=== PATIENT | female | born 1990 | race African-American/Black ===

== ENCOUNTER 2019-10-30 20:13 | Emergency (ER) | payer OTHER ==
[~2019-10-30] VITALS: Ht 157.5 cm; Wt 103.4 kg
[2019-10-30] MEDS ORDERED: FAMOTIDINE 20 MG/2 ML VIAL IV STA (21:18)
[2019-10-30] MEDS ORDERED: ONDANSETRON HCL INJ 2MG/ML 2ML 2 MG/ML VIAL IV STA (21:18)
--- NOTE | 2019-10-30 21:18 | Emergency Department Note ---
History of Present Illnes History of Present Illness Chief Complaint: Abdominal Complaints History of Present Illness This is a 29 year old female, with no significant past medical history, who presents with a four-day history of intermittent nausea, diarrhea, abdominal pain. Patient states that the night before the onset of her symptoms, she ate some food that was left over from 2 days before, and it had been left out in the hot car, along with some Ranch Dip, and then refrigerated until patient ate it that evening. The following morning, patient developed frequent, loose, watery stools, along with nausea, and mid abdominal pain that has been sharp and stabbing. Patient's diarrhea has improved, but she did have 5 episodes today of loose, watery stool without blood, with small amount of mucus on the tissue. The loose stools occurred, after she ate solid food. The abdominal pain has become more constant, and she points to her mid abdomen as the site of pain. She states that she had abdominal pain all last night, which made it difficult to sleep. There is no radiation of the pain she denies any fever, chills, vomiting, dysuria, frequency, urgency, cough, or upper respiratory symptoms. She denies any known sick contacts, and no one else at home is symptomatic. She does work at the hospital in dietary. She's been taking Pepto-Bismol and ibuprofen 800 mg 3 times per day. Fluid intake today consisted of Sprite, Powerade and mineral water. Patient denies any recent antibiotic use. She denies any previous history of similar symptoms. Historian: Patient Arrival Mode: Car Telegraph Mechanic Required: No Onset (how long ago): day(s) (4) Location: mid-abdomen Quality: sharp, stabbing, cramping Radiation: Reports non-radiation Severity: moderate Duration (how long): day(s) (4) Timing of current episode: constant Progression: unchanged Chronicity: new Context: Denies recent illness, Denies recent surgery, Denies trauma/injury, Denies new medications Relieving factors: none Exacerbating factors: none Associated symptoms: Reports nausea/vomiting (without vomiting;); Denies chest pain, Denies cough, Denies fever/chills, Denies headaches, Denies loss of appetite, Denies malaise, Denies shortness of breath, Denies weakness Treatments prior to arrival: NSAID, other (Pepto Bismol) Risk factors: ate possible bad food; Past Medical/Family History Physician Review I have reviewed the patient's past medical and family history. Any updates have been documented here. Past Medical History Recent Fever: No Clinical Suspicion of Infectio: No New/Unexplained Change in Ment: No Past Medical History: None Other Surgery: wisdom tooth (right lower jaw) Social History Smoking Cessation: Never Smoker Counseling Performed: No Any Illegal Drug Use: No TB Exposure/Symptoms: No Physically hurt or threatened: No Family History Family history of heart diseas: No Other Last Tetanus: < 5 years; Any Pre-Existing Lines (PICC,: No Is patient up to date on immun: Yes Review of Systems Review of Systems Constitutional: Denies chills, Denies fever EENTM: Denies no symptoms Cardiovascular: Denies no symptoms, Denies chest pain Respiratory: Denies cough, Denies dyspnea, Denies dyspnea on exertion Gastrointestinal: Reports abdominal pain, Reports diarrhea, Reports nausea; Denies constipation, Denies vomiting Genitourinary: Denies dysuria, Denies frequency Musculoskeletal: Reports back pain (right sided low back pain, "for months."); Denies joint pain, Denies joint swelling, Denies neck pain Integumentary: Denies change in color, Denies rash Neurological: Denies headache, Denies paresthesia, Denies tingling Psychological: Reports no symptoms Hematological/Lymphatic: Reports no symptoms Review of other systems: All other systems negative Physical Exam Related Data Allergies: Coded Allergies: amoxapine (Verified Allergy, Intermediate, 10/30/19) Triage Vital Signs Vital Signs Date Time Temp Pulse Resp B/P (MAP) Pulse Ox O2 Delivery O2 Flow Rate FiO2 10/30/19 20:49 98.7 17 142/82 100 Room Air Vital signs reviewed: Yes Physical Exam CONSTITUTIONAL Constitutional: Present well-developed, Present well-nourished, Present obese HENT HENT: Present normocephalic, Present atraumatic, Present oropharynx clear/moist, Present nose normal HENT L/R: Present left ext ear normal, Present right ext ear normal EYES Eyes: Reports PERRL, Reports conjunctivae normal NECK Neck: Present ROM normal, Present supple; Absent cervical adenopathy PULMONARY Pulmonary: Present effort normal, Present breath sounds normal CARDIOVASCULAR Cardiovascular: Present regular rhythm, Present heart sounds normal, Present capillary refill normal, Present normal rate; Absent murmur GASTROINTESTINAL Abdominal: Present soft, Present bowel sounds normal, Present tender (mild, diffuse tenderness, without rebound or guarding;); Absent distension GENITOURINARY Genitourinary: Present exam deferred SKIN Skin: Present warm, Present dry; Absent rash MUSCULOSKELETAL Musculoskeletal: Present ROM normal; Absent edema, Absent tenderness NEUROLOGICAL Neurological: Present alert, Present oriented x 3 PSYCHOLOGICAL Psychological: Present mood/affect normal, Present judgement normal Results Laboratory Lab results reviewed: Yes Laboratory comments UA - neg except for ket 15 mg/dl, blo - small; UPT - negative; CBC - nl, except for Hg = 11.8; Metlyte -nl, except Cr = 0.4, k+ = 3.5; Liver - nl, including normal amylase; Imaging Imaging results reviewed: Yes Impressions [place] [address] Patient Name: KATI COOK MR #: [id number] : 1990 Age/Sex: 29/F Req #: [id number] Adm Physician: Ordered by: KECIA MARTINEZ MD Report #: [id number] Location: [facility] Room/Bed: Procedure: HOPD/CT ABD/PEL WITH CONTRAST-HOPD Exam Date: 10/30/19 Exam Time: 2211 REPORT STATUS: Signed EXAM: CT Abdomen and Pelvis WITH contrast INDICATION: ^abdominal pain ^20191030 ^2211 COMPARISON: None. TECHNIQUE: Abdomen and pelvis were scanned utilizing a multidetector helical scanner from the lung base to the pubic symphysis after administration of IV contrast. Coronal and sagittal reformations were obtained. Dose modulation, iterative reconstruction, and/or weight based adjustment of the mA/kV was utilized to reduce the radiation dose to as low as reasonably achievable. Routine protocol was performed. Scan was performed when during portal venous phase. IV CONTRAST: 100 mL of Isovue-370 ORAL CONTRAST: None COMPLICATIONS: None RADIATION DOSE: Total DLP: 807.05 mGy*cm Estimated effective dose: (DLP x 0.015 x size factor) mSv CTDIvol has been reviewed. It is below the limits set by the Radiation Protocol Committee (RPC). FINDINGS: LINES and TUBES: None. LOWER THORAX: Unremarkable HEPATOBILIARY: No focal hepatic lesions. No biliary ductal dilation. GALLBLADDER: No radio-opaque stones or sludge. No wall thickening. SPLEEN: No splenomegaly. PANCREAS: No focal masses or ductal dilatation. ADRENALS: No adrenal nodules KIDNEYS/URETERS: Kidneys enhance symmetrically. No hydronephrosis. No cystic or solid mass lesions. No stones. GI TRACT: No abnormal distention, wall thickening, or evidence of bowel obstruction. Appendix is normal. PELVIC ORGANS/BLADDER: Myomatous uterus. Bladder is unremarkable. LYMPH NODES: No lymphadenopathy. VESSELS: Unremarkable. PERITONEUM / RETROPERITONEUM: No free air or fluid. BONES: Unremarkable. SOFT TISSUES: Unremarkable. IMPRESSION: 1. No acute inflammatory process in the abdomen/pelvis. 2. Myomatous uterus. Signed by: Dr. Gerber Jean MD on 10/30/2019 11:07 PM Dictated By: GERBER JEAN MD 06 Transcribed By: RIMMA on 10/30/192306 COPY TO: KECIA MARTINEZ MD~ Diagnostics Tests Diagnostic test(s) reviewed: Yes Assessment & Plan Medical Decision Making MDM - Recommend that you follow a BLAND diet, avoiding fried, fatty, fast, and spicy foods. - Started out with broth and soups, and slowly advance to a more solid diet, as your symptoms allow. - Increase fluid intake, primarily water, Pedialyte, her G-tube Gatorade. Avoid all juices and sodas or other carbonated drinks. - For the diarrhea, he may take Imodium AD as per package instructions, as needed. - Increase Potassium Rich foods, as possible, until your diarrhea resolves. - Avoid Ibuprofen, due to abdominal pain/gastritis. - Follow-up with your primary care physician if symptoms persist, or return to the ED if they worsen. Assessment & Plan Final Impression: (1) Abdominal pain (2) Nausea (3) Diarrhea (4) Gastritis Depart Disposition: HOME, SELF-CARE Last Vital Signs Date Time Temp Pulse Resp B/P (MAP) Pulse Ox O2 Delivery O2 Flow Rate FiO2 10/30/19 20:49 98.7 17 142/82 100 Room Air Home Meds Active Scripts Famotidine (FAMOTIDINE) 20 Mg Tab, 40 MG PO DAILY for acid reflux, #30 TAB 0 Refills Prov:KECIA MARTINEZ MD 10/30/19 Dicyclomine Hcl (DICYCLOMINE HCL) 20 Mg Tablet, 1 TAB PO QID PRN for abdominal pain or cramping, #20 TAB 0 Refills Prov:KECIA MARTINEZ MD 10/30/19 Ondansetron (ONDANSETRON ODT) 8 Mg Tab.rapdis, 4 MG PO Q6H PRN for nausea, #20 TAB 0 Refills Prov:KECIA MARTINEZ MD 10/30/19 KECIA MARTINEZ MD Oct 30, 2019 21:17
[2019-10-30] MEDS ORDERED: ONDANSETRON HCL INJ 2MG/ML 2ML 2 MG/ML VIAL ONE (21:28)
[2019-10-30] MEDS ORDERED: SODIUM CHLORIDE 0.9% 1000ML 1,000 ML IV SCH (21:30)
[2019-10-30] MEDS ORDERED: DICYCLOMINE HCL 20 MG TAB PO ONE (21:30)
--- OUTSIDE RECORDS SUMMARY | 2019-10-30 21:30 | XMS REPORT | Clinical Summary ---
Author Author JESUS[facility] Address Unknown Phone Unavailable Care Team Providers Care Assignment Desk Assistant Name Role Phone Sharpless PCP Allergies Comments Active Allergy Reactions Severity Noted Date Amoxicillin Rash Low 08/21/2012 Medications No known medications Active Problems Not on file Social History Date Tobacco Use Types Packs/Day Years Used Never Smoker Smokeless Tobacco: Never Used Alcohol Use Drinks/Week oz/Week Comments No Sex Assigned at Date Recorded Not on file Industry Job Start Date Occupation Not on file Not on file Not on file Travel End Travel History Travel Start No recent travel history available. Last Filed Vital Signs Not on file Plan of Treatment Not on file Results Not on fileafter 10/29/2018 Insurance Payer Benefit Subscriber ID Type Phone Address Plan / Group [employer]ET[employer] - [employer] C[employer] AET[employer] HMO xxxxxxxxxx HMO/POS POS QPOS
--- OUTSIDE RECORDS SUMMARY | 2019-10-30 21:30 | XMS REPORT | Continuity of Care Document ---
Author Author [facility] t Organization [facility] Address [address] [place] [address] [address] [place] [address] Phone Unavailable Care Team Providers Care Enterprise Data Architect Name Role Phone Sharpless PCP Payers Payer Name Policy Type Policy Number Effective Date Expiration Date S ource Problems This patient has no known problems. Allergies, Adverse Reactions, Alerts Allergy Name Allergy Type Status Severity Reaction(s) Onset Date Inacti ve Date Treating Clinician Comments Source amoxicillin DA Active U 2018-05-12 00:00:00 [facility] amoxicillin DA Active U 2012-09-16 00:00:00 [facility] Amoxicillin Drug Allergy Active Rash 2012-08-21 00:00:00 [facility] Social History Social Habit Start Date Stop Date Quantity Comments Source Sex Assigned At [facility] Smoking Status Start Date Stop Date Source Never smoker [facility] Medications This patient has no known medications. Procedures This patient has no known procedures. Results Test Description Test Time Test Comments Results Result Comments Source - XR CHEST 2 V 2018-05-12 01:03:00 FAX: Michele Paz MD [phone] [place]: St: REG -- [facility] 1990 Age/S: 28/F [address] [place] [address] Unit #: [id number] Loc: [address] [address] Phys: Michele Paz MD Acct: [id number] Dis Date: Status: REG ER PHONE #: [phone] Exam Date: 05/12/2018 0046 FAX #: [phone] Reason: cough EXAMS: CPT CODE: [id number] XR CHEST 2 V 24425 Chest, 2 views dated 05/12/2018. HISTORY: Cough. Body aches. Fever. Comparison is made to a prior study dated 07/30/2011. The heart is normal in size. The cardiomediastinal shadow appears within normal limits. The lungs appear clear. The pulmonary vasculature is normal in caliber. No acute pleural space abnormalities are detected. IMPRESSION: 1. No radiographic evidence of acute cardiopulmonary disease. SL: 131 at 0103 Reported and signed by: Bill Starr M.D. CC: Michele Paz MD Technologist: RT Agustina(Janeth) Trnscrd Date/Time/By: 05/12/2018 (010) : By: Smith Orig Print D/T: S: 05/12/2018 (010) PAGE 1 Signed Report
[2019-10-30] MEDS ORDERED: DICYCLOMINE HCL 10 MG CAP ONE (21:58)
[2019-10-30] MEDS ORDERED: SODIUM CHLORIDE 0.9% 50ML 50 ML ONE (22:06)
[2019-10-30] MEDS ORDERED: IOPAMIDOL 370 MG/ML 200 ML INFUS..BTL INJ ONE (22:07)
--- NOTE | 2019-10-30 23:11 | Diagnostic Imaging Report ---
EXAM: CT Abdomen and Pelvis WITH contrast INDICATION: ^abdominal pain ^20191030 ^221 COMPARISON: None. TECHNIQUE: Abdomen and pelvis were scanned utilizing a multidetector helical scanner from the lung base to the pubic symphysis after administration of IV contrast. Coronal and sagittal reformations were obtained. Dose modulation, iterative reconstruction, and/or weight based adjustment of the mA/kV was utilized to reduce the radiation dose to as low as reasonably achievable. Routine protocol was performed. Scan was performed when during portal venous phase. IV CONTRAST: 100 mL of Isovue-370 ORAL CONTRAST: None COMPLICATIONS: None RADIATION DOSE: Total DLP: 807.05 mGy*cm Estimated effective dose: (DLP x 0.015 x size factor) mSv CTDIvol has been reviewed. It is below the limits set by the Radiation Protocol Committee (RPC). FINDINGS: LINES and TUBES: None. LOWER THORAX: Unremarkable HEPATOBILIARY: No focal hepatic lesions. No biliary ductal dilation. GALLBLADDER: No radio-opaque stones or sludge. No wall thickening. SPLEEN: No splenomegaly. PANCREAS: No focal masses or ductal dilatation. ADRENALS: No adrenal nodules KIDNEYS/URETERS: Kidneys enhance symmetrically. No hydronephrosis. No cystic or solid mass lesions. No stones. GI TRACT: No abnormal distention, wall thickening, or evidence of bowel obstruction. Appendix is normal. PELVIC ORGANS/BLADDER: Myomatous uterus. Bladder is unremarkable. LYMPH NODES: No lymphadenopathy. VESSELS: Unremarkable. PERITONEUM / RETROPERITONEUM: No free air or fluid. BONES: Unremarkable. SOFT TISSUES: Unremarkable. IMPRESSION: 1. No acute inflammatory process in the abdomen/pelvis. 2. Myomatous uterus. Signed by: Dr. Gerber Jean MD on 10/30/2019 11:07 PM
[2019-10-30] MEDS ORDERED: ONDANSETRON ODT8 MG PO (23:20)
[2019-10-30] MEDS ORDERED: DICYCLOMINE HCL20 MG PO (23:21)
[2019-10-30] MEDS ORDERED: FAMOTIDINE20 MG PO (23:22)
[2019-10-30 23:25] VITALS: BP 122/67
== END 2019-10-30 23:51 | disposition home or self-care (01) ==
LOC: FSED 20:13
DX: R10.84 Generalized abdominal pain (principal); R11.2 Nausea with vomiting, unspecified; R19.7 Diarrhea, unspecified; K29.70 Gastritis, unspecified, without bleeding
CPT/HCPCS: 74177; 99284; J2405; J7030; Q9967

== ENCOUNTER 2019-11-28 12:41 | Emergency (ER) | payer OTHER ==
[~2019-11-28] VITALS: Ht 157.5 cm; Wt 113.4 kg
[~2019-11-28 12:41] MED LIST: DICYCLOMINE HCL20 MG PO; FAMOTIDINE20 MG PO; ONDANSETRON ODT8 MG PO
--- OUTSIDE RECORDS SUMMARY | 2019-11-28 13:31 | XMS REPORT | Continuity of Care Document ---
Author Author [facility] t Organization [facility] Address [address] [place] [address] Phone Unavailable Care Team Providers Care Manager Trainee Name Role Phone NONSTAFF PCP Unavailable EVAN BEAR Attphys Unavailable Suyapa Maki MD Attphys SUYAPA MAKI Attphys Unavailable DUCRoxi GAGNON KECIA Attphys Unavailable EVAN BEAR Admphys Unavailable Payers Payer Name Policy Type Policy Number Effective Date Expiration Date Darío colindres [facility] Ppo [id number] 2019 00:00:00 [facility] - [facility] [employer] POSxxxxxxxxx xxxxxxxxx [facility] Problems Condition Name Condition Details Condition Category Status Onset Date Resolution Date Last Treatment Date Treating Clinician Comments Source Diarrhea Problem Active [facility] Nausea Problem Active [facility] Abdominal pain Problem Active [facility] Gastritis Problem Active [facility] Back pain Problem Active [facility] Urinary tract infection Problem Active [facility] Fever Problem Active [facility] Soft tissue lesion of knee region Problem Active [facility] Allergies, Adverse Reactions, Alerts Allergy Name Allergy Type Status Severity Reaction(s) Onset Date Inacti ve Date Treating Clinician Comments Source Amoxapine Allergy to substance Active Moderate 2019-10-30 00:00:00 [facility] amoxicillin DA Active U 2018-05-12 00:00:00 [facility] amoxicillin DA Active U 2012-09-16 00:00:00 [facility] Amoxicillin Drug Allergy Active Rash 2012-08-21 00:00:00 [facility] Social History Social Habit Start Date Stop Date Quantity Comments Source Sex Assigned At [facility] Smoking Status Start Date Stop Date Source Never smoker [facility] Medications Ordered Medication Name Filled Medication Name Start Date Stop Da te Current Medication? Ordering Clinician Indication Dosage Frequency Signature (SIG) Comments Components Source baclofen (LIORESAL) 10 MG tablet 2019-11-05 00:00:00 2019-10 23:59:00 No 10mg [id number] Take 1 tablet (10 mg total) by mouth 3 (three) times daily for 10 days. [facility] ketorolac (TORADOL) 10 mg tablet 2019-11-05 00:00:00 2019-10 23:59:00 No 10mg Take 1 tablet (10 mg total) by mouth every 6 (six) hours as needed for Pain for up to 5 days. [facility] Famotidine Famotidine 2019-10-30 23:22:00 Yes 40 Daily for Acid Reflux [facility] Dicyclomine Hcl Dicyclomine Hcl 2019-10-30 23:21:00 Yes 1 Four Times Daily as needed for Abdominal Pain Or Cramping [facility] Ondansetron (Ondansetron Odt) 8 Mg TAB.RAPDIS Ondanset javon (Ondansetron Odt) 8 Mg TAB.RAPDIS 2019-10-30 23:20:00 Yes 4 E very 6 Hours as needed for Nausea [facility] Vital Signs Vital Name Observation Time Observation Value Comments Source Body Temperature 2019-11-21 08:41:00 98.3 [degF] [facility] BMI (Body Mass Index) 2019-11-18 01:07:00 46.3 kg/m2 [facility] Weight 2019-11-17 22:40:00 253 [lb_av] [facility] Systolic blood pressure 2019-11-05 12:45:00 133 mm[Hg] [facility] Diastolic blood pressure 2019-11-05 12:45:00 85 mm[Hg] [facility] Heart rate 2019-11-05 12:45:00 81 /min [facility] Body temperature 2019-11-05 12:45:00 36.78 Angelina [facility] Respiratory rate 2019-11-05 12:45:00 16 /min [facility] Oxygen saturation in Arterial blood by Pulse oximetry 11-04 12:45:00 99 /min [facility] Body height 2019-11-05 07:20:00 157.5 cm [facility] Body weight Measured 2019-11-05 07:20:00 104.327 kg [facility] BMI 2019-11-05 07:20:00 42.07 kg/m2 [facility] Weight 2019-10-30 20:49:00 228 [lb_av] [facility] BMI (Body Mass Index) 2019-10-30 20:49:00 41.7 kg/m2 [facility] Procedures Procedure Date / Time Performed Performing Clinician [facility] e MRI joint extremity lower w contrast 2019-11-19 00:00:00 [facility] MRI jnt of lwr extre w/o dye 2019-11-18 00:00:00 [facility] C-REACTIVE PROTEIN 2019-11-05 11:47:00 Harmeet Maki [facility] Darío [facility] COMPREHENSIVE METABOLIC PANEL 2019-11-05 09:46:00 Harmeet Maki [facility] CBC W/PLT COUNT & AUTO DIFFERENTIAL 2019-11-05 09:46:00 GlynnKayode [facility] XR SPINE LUMBAR COMPLETE MIN 4 VIEWS 2019-11-05 09:32:00 GlynnJackie [facility] XR SPINE THORACIC 2 VIEWS 2019-11-05 09:31:00 GlynnHarmeet [facility] XR HIP 2 VIEWS LEFT 2019-11-05 09:20:00 Glynn Harmeet [facility] XR CHEST 2 VIEWS 2019-11-05 09:10:00 Glynn Harmeet [facility] SCREEN, URINE 2019-11-05 08:00:00 Glynn Harmeet [facility] URINALYSIS W/ REFLEX URINE CULTURE 2019-11-05 08:00:00 Doug Maki [facility] Plan of Care Planned Activity Planned Date Details Comments Source Future Scheduled Test 2019-10-26 00:00:00 INFLUENZA VACCINE (#1) [code = INFLUENZA VACCINE (#1)] [facility] Future Scheduled Test 2009 00:00:00 Screening for prema gnant neoplasm of cervix (procedure) [code = 747991127] [facility] Future Scheduled Test 2008 00:00:00 Lipid panel (proce dure) [code = 59614068] [facility] Instructions Constipation - Adult [facility] Instructions Heartburn [facility] Encounters Start Date/Time End Date/Time Encounter Type Admission Type [facility] Facility Care Department Encounter ID Source 2019-11-17 20:01:00 2019-11-17 20:01:00 Admitted Inpatient 1 EVAN CHIANG [facility] [id number] [facility] 2019-10-30 20:13:00 2019-10-30 23:51:00 Departed Emergency Room 1 NATALIE MARTINEZA [facility] [id number] [facility] Results Test Description Test Time Test Comments Results Result Comments Source Blood leukocytes automated count (number/volume) 2019-11-20 10:50:00 Test Item White Blood Count (test code = 6690-2) 8.11 4.8-10.8 [facility] count (number/volume)2019-11-20 10:50:00* Test Item Value Reference Range Interpretation Comments Red Blood Count (test code = 789-8) 3.77 3.6-5.1 [facility] hemoglobin measurement (moles/volume)2019-11-20 10:50:00* Test Item Value Reference Range Interpretation Comments Hemoglobin (test code = 25608-2) 10.6 12.0-16.0 [facility] blood hematocrit (volume fraction)2019-11-20 10:50:00* Test Item Value Reference Range Interpretation Comments Hematocrit (test code = 4544-3) 32.3 34.2-44.1 [facility] erythrocyte mean corpuscular ndscqa6209-62-89 10:50:00* Test Item Value Reference Range Interpretation Comments Mean Corpuscular Volume (test code = 787-2) 85.7 81-99 [facility] erythrocyte mean corpuscular hemoglobin (mass per erythrocyte)2019-11-20 10:50:00* Test Item Value Reference Range Interpretation Comments Mean Corpuscular Hemoglobin (test code = 785-6) 28.1 28-32 [facility] erythrocyte mean corpuscular hemoglobin concentration measurement (mass/volume)2019-11-20 10:50:00* Test Item Value Reference Range Interpretation Comments Mean Corpuscular Hemoglobin Concent (test code = 786-4) 32.8 31-35 [facility] CampusRDW GjoJv-Vzn8694-62-26 10:50:00* Test Item Value Reference Range Interpretation Comments Red Cell Distribution Width (test code = 38208-7) 12.4 11.7 -14.4 [facility] Campus[facility] blood platelet count (count/volume)2019-11-20 10:50:00* Test Item Value Reference Range Interpretation Comments Platelet Count (test code = 777-3) 441 140-360 [facility] Campus[facility] blood segmented neutrophil count as percentage of total wwitezgukt2532-03-91 10:50:00* Test Item Value Reference Range Interpretation Comments Neutrophils (%) (Auto) (test code = 56956-9) 75.3 38.7-80.0 [facility] Campus[facility] blood lymphocyte count as percentage ot total crqqrueqkj1927-87-52 10:50:00* Test Item Value Reference Range Interpretation Comments Lymphocytes (%) (Auto) (test code = 736-9) 15.8 18.0-39.1 [facility] CampusAutom[facility] blood monocyte count as percentage of total bsxgzrdxmc1645-52-24 10:50:00* Test Item Value Reference Range Interpretation Comments Monocytes (%) (Auto) (test code = 5905-5) 8.4 4.4-11.3 [facility] CampusAutom[facility] blood eosinophil count as percentage of total brjvoryumd6464-45-18 10:50:00* Test Item Value Reference Range Interpretation Comments Eosinophils (%) (Auto) (test code = 713-8) 0.0 0.0-6.0 [facility] CampusAutomated blood basophil count as percentage of total fdalsuechd3673-31-32 10:50:00* Test Item Value Reference Range Interpretation Comments Basophils (%) (Auto) (test code = 706-2) 0.1 0.0-1.0 [facility] CampusFluoroscopic procedure less than one hour ibefzxcc9454-06-93 10:50:00* Test Item Value Reference Range Interpretation Comments IM GRANULOCYTES % (test code = IM GRANULOCYTES %) 0.4 0.0- 1.0 [facility] Campus[facility] blood neutrophil count 2019-11-20 10:50:00* Test Item Value Reference Range Interpretation Comments Neutrophils # (Auto) (test code = 751-8) 6.1 2.1-6.9 [facility] lymphocytes count (number/volume) 2019-11-20 10:50:00* Test Item Value Reference Range Interpretation Comments Lymphocytes # (Auto) (test code = 90046-2) 1.3 1.0-3.2 [facility] monocytes automated count (number/volume)2019-11-20 10:50:00* Test Item Value Reference Range Interpretation Comments Monocytes # (Auto) (test code = 742-7) 0.7 0.2-0.8 [facility] CampusAutomated blood eosinophil count 2019-11-20 10:50:00* Test Item Value Reference Range Interpretation Comments Eosinophils # (Auto) (test code = 711-2) 0.0 0.0-0.4 [facility] CampusAutomated blood basophil count (count/volume)2019-11-20 10:50:00* Test Item Value Reference Range Interpretation Comments Basophils # (Auto) (test code = 704-7) 0.0 0.0-0.1 [facility] CampusFluoroscopic procedure less than one hour ebivbmma7563-40-86 10:50:00* Test Item Value Reference Range Interpretation Comments Absolute Immature Granulocyte (auto (ana maria t code = Absolute Immature Granulocyte (auto) 0.03 0-0.1 [facility] CampusErythrocyte sedimentation rate by Westergren seakzs6376-57-22 10:50:00* Test Item Value Reference Range Interpretation Comments Erythrocyte Sedimentation Rate (test code = 4537-7) 97 0- 20 [facility] or plasma sodium measurement (moles/volume)2019-11-20 10:50:00* Test Item Value Reference Range Interpretation Comments Sodium Level (test code = 2951-2) 138 136-145 [facility] or plasma potassium measurement (moles/volume)2019-11-20 10:50:00* Test Item Value Reference Range Interpretation Comments Potassium Level (test code = 2823-3) 4.0 3.5-5.1 [facility] or plasma chloride measurement (moles/volume)2019-11-20 10:50:00* Test Item Value Reference Range Interpretation Comments Chloride Level (test code = 2075-0) 103 98-107 [facility] or plasma carbon dioxide, total measurement (moles/volume)2019-11-20 10:50:00* Test Item Value Reference Range Interpretation Comments Carbon Dioxide Level (test code = 2027-) 25 22-29 [facility] or plasma anion hqt8620-67-00 10:50:00* Test Item Value Reference Range Interpretation Comments Anion Gap (test code = 14474-4) 14.0 8-16 [facility] or plasma urea nitrogen measurement (mass/volume)2019-11-20 10:50:00* Test Item Value Reference Range Interpretation Comments Blood Urea Nitrogen (test code = 3094-0) 10 7- [facility] or plasma creatinine measurement (mass/volume)2019-11-20 10:50:00* Test Item Value Reference Range Interpretation Comments Creatinine (test code = 2160-0) 0.61 0.57-1.11 [facility] or plasma urea nitrogen/creatinine mass optya7990-21-44 10:50:00* Test Item Value Reference Range Interpretation Comments BUN/Creatinine Ratio (test code = 3097-3) 16 - [facility] CampusEstimated glomerular filtration rate (GFR) oaqxjobaxbcpx5150-47-33 10:50:00* Test Item Value Reference Range Interpretation Comments Estimat Glomerular Filtration Rate (test code = 411720886) > 60 >60 Ranges were taken from the National Kidney Disease Education Program and the [facility] [employer] literature.Reference ranges:60 or greater: Aqhdas66-16 ( for 3 consecutive months): Chronic kidney disease 15 or less: Kidney failureThe Hospitals of Providence East CampusGlucose hnuvqxcxrqn1625-07-61 10:50:00* Test Item Value Reference Range Interpretation Comments Glucose Level (test code = EEM1557) 100 74-118 [facility] or plasma calcium measurement (mass/volume)2019-11-20 10:50:00* Test Item Value Reference Range Interpretation Comments Calcium Level (test code = 83091-2) 9.4 8.4-10.2 [facility]rum or plasma uric acid measurement (mass/volume)2019-11-20 10:50:00* Test Item Value Reference Range Interpretation Comments Uric Acid (test code = 3084-1) 3.7 2.6-8.0 [facility] CampusMRI RIGHT KNEE [id number] 09:59:00 [place] [address] [place] [address] Patient Name: KATI COOK MR #: [id number] : 1990 Age/Sex: 29/F Req #: [id number] Adm Physician: EVAN BEAR MD Ordered by: OLIVIA WRIGHT Report #: [id number] Location: MED/SURG Room/Bed: [facility] Procedure: [id number] MRI/MRI RIGHT KNEE W Exam Date: Exam Time: REPORT STATUS: Signed TECHNIQUE: Magnetic re sonance imaging of the RIGHT KNEE was performed WITH injected contrast. CONTRAST: 20 mL MultiHance HISTORY: Knee pain, abnormal knee MRI COMPARI SON: Right knee MRI without contrast 11/18/2019, right lower extremity Doppler ultrasound 11/17/2019 FINDINGS: Limited postcontrast knee MRI with only single postcontrast axial sequence for further evaluation of abnormality noted on noncontrast MRI. Lentiform shaped mass with peripheral T2 hyperintensity and internal isointensity within the posterior soft tissues extending between the fascial planes of the popliteus and proximal gastrocnemius musculature. Lesion demonstrates avid diffuse enhancement. Finding correlates with hypoecho ic mass without visualized internal hyperemia on prior Doppler ultrasound. M ass abuts the popliteal vasculature. Popliteal vein appears grossly patent on postcontrast sequences. Redemonstrated large joint effusion with diffuse sy novitis. Please see report from noncontrast knee MRI for further evaluation of the right knee. IMPRESSION: 1. Lentiform shaped mass extending infer iorly from the popliteal fossa with diffuse enhancement on postcontrast sequen ce. Mass is indeterminate however differential diagnosis includes soft tissue neoplasm, peripheral nerve sheath tumor, fasciitis/fibromatosis, or focal/nod ular synovitis. Recommend biopsy for definitive evaluation. 2. Redemonstrat ed large joint effusion with diffuse synovitis. Signed by: Dr. Citlali mcintosh M.D. on 11/19/2019 11:21 AM Dictated By: CITLALI Maciel ically Signed By: CITLALI GALDAMEZ MD on 11/19/19 112 Transcribed By: RIMMA on 11/19/191120 COPY TO: OLIVIA WRIGHT Specimen source identification of body bgmwj4839-64-42 08:11:00* Test Item Value Reference Range Interpretation Comments Body Fluid Type (test code = 71176-2) SYNOVIAL [facility] CampusEvaluation of color of body fluid 2019-11-19 08:11:00* Test Item Value Reference Range Interpretation Comments Body Fluid Color (test code = 6824-7) YELLOW [facility] CampusDetermination of appearance of body fluid 2019-11-19 08:11:00* Test Item Value Reference Range Interpretation Comments Body Fluid Appearance (test code = 9335-1) CLOUDY [facility] body fluid leukocytes count (number/volume)2019-11-19 08:11:00* Test Item Value Reference Range Interpretation Comments Body Fluid WBC (test code = 6743-9) 15282 [facility] body fluid erythrocytes count (number/volume)2019-11-19 08:11:00* Test Item Value Reference Range Interpretation Comments Body Fluid RBC (test code = 6741-3) 165 [facility] body fluid neutrophils/100 obagsztljn9134-87-92 08:11:00* Test Item Value Reference Range Interpretation Comments Body Fluid Neutrophils (test code = 90349-2) 67 [facility] CampusBody fluid lymphocyte wgczc8699-53-89 08:11:00* Test Item Value Reference Range Interpretation Comments Body Fluid Lymphocytes (test code = 25647035) 20 [facility] CampusBody fluid monocyte ihoca7413-70-39 08:11:00* Test Item Value Reference Range Interpretation Comments Body Fluid Monocytes (test code = 75903-2) 13 [facility] CampusTotal cell gkwon9761-48-70 08:11:00* Test Item Value Reference Range Interpretation Comments Body Fluid Total Cells Counted (test code = 35673-6) 100 [facility] [id number] 15:35:00 [facility] [address] [place] [address] Patient Name: KATI COOK MR #: [id number] : 1990 Age/Sex: 29/F Req #: [id number] Adm Physician: EVAN BEAR MD Ordered by: EVAN BEAR MD Report #: [id number] Location: MED/SURG Room/Bed: [facility] Procedure: [id number] MRI/MRI RIG HT KNEE WO Exam Date: Exam Time: REPORT STATUS: Signed TECHNIQUE: Magnetic reson ance imaging of the RIGHT KNEE was performed WITHOUT injected contrast. HISTORY: Right knee pain and swelling COMPARISON: Right lower extremity veno us Doppler ultrasound 11/17/2019 FINDINGS: Evaluation is partially limite d by imaging technique due to body habitus. LIGAMENTS AND TENDONS: A CL: Intact PCL: Intact Collateral ligaments: Intact Ilio tibial band: Unremarkable Popliteal tendon: Intact Extensor mech anism: Intact JOINT: Menisci: Medial: Intact Lateral: Intact Articular Cartilage: Medial Compartme nt: Low-grade cartilage thinning along the weightbearing medial femoral condy le. No focal defect. Lateral Compartment: Low-grade cartilage thinn ing along the weightbearing lateral femoral condyle. No focal defect. Patellofemoral Compartment: Mild lateral patellar subluxation with superf icial fraying of the articular cartilage along the patella. No focal defect. Joint Fluid: Large joint effusion with synovitis. Tiny Stoddard's cyst. BONE: No focal or infiltrative bone marrow replacing abnormality. No acute fracture. SOFT TISSUES: Mild increased signal and fluid tracking al tj the distal aspect of the vastus lateralis muscle along the lateral aspect of the knee. Lentiform shaped lentiform shaped lesion with peripheral T2 hyper intensity and internal isointensity measuring up to 7 x 2.3 x 2.4 cm (SI x AP x Trans) within the posterior soft tissues extending between the fascial plane s of the popliteus and proximal gastrocnemius musculature. Superior aspect of lesion abuts the posterior joint recess without definite communication of join t fluid. Lesion results in mild regional mass effect on the adjacent popliteal vasculature. IMPRESSION: 1. Lentiform shaped lesion measuring up to 7 cm extending inferiorly from the popliteal fossa with peripheral T2 hyper intensity and internal isointensity. Superior aspect of the lesion abuts the p osterior joint recess without definite communication of joint fluid. Different ial diagnosis includes extravasated joint fluid with internal debris, resolvin g hematoma, thrombosed vascular lesion, or less likely soft tissue neoplasm. R ecommend postcontrast knee MRI sequences for further evaluation. 2. Large j oint effusion with synovitis. 3. Nonspecific increased signal and fluid tracki ng along the distal aspect of the vastus lateralis muscle, may represent extra vasated joint fluid, muscle strain, or less likely focal myositis. 4. Minima l tricompartmental cartilage degeneration. Signed by: Dr. Citlali Galdamez M.D. on 11/19/2019 8:26 AM Dictated By: CITLALI GALDAMEZ MD 5 Transcribed By: RIMMA on 11/18 COPY TO: EVAN BEAR MD MRI KNEE LEFT [id number] 15:07:00 [place] [address] Patient Name: KATI COOK MR #: [id number] : 1990 Age/Sex: 29/F Req #: [id number] Adm Physician: EVAN BEAR MD Ordered by: EVAN BEAR MD Report #: [id number] Location: MED/SURG Room/Bed: [facility] Procedure: [id number] MRI/MRI KNE E LEFT WO Exam Date: Exam Time: REPORT STATUS: Signed TECHNIQUE: Magnetic resona nce imaging of the LEFT KNEE was performed WITHOUT injected contrast. HI STORY: Left knee pain and swelling COMPARISON: None available. FINDINGS : Evaluation is partially limited by imaging technique secondary to patient b xi habitus. LIGAMENTS AND TENDONS: ACL: Intact PCL: Inta ct Collateral ligaments: Intact Iliotibial band: Unremarkable Popliteal tendon: Intact Extensor mechanism: Intact JOINT: Menisci: Medial: Small tear along the free margin at the body of the medial meniscus. Lateral: Oblique tear of the anterior ho rn of the lateral meniscus which extends to the superior surface. Ar ticular Cartilage: Medial Compartment: Low-grade cartilage thinning along the weightbearing medial femoral condyle. No focal defect. Lateral Compartment: Low-grade cartilage thinning along the weightbearing lat eral femoral condyle. No focal defect. Patellofemoral Compartment: Mild lateral patellar subluxation with low-grade cartilage fissuring along the medial patellar facet. Joint Fluid: Large joint effusion with synovit is. Moderate-sized Stoddard's cyst measuring up to 4 cm in craniocaudal dimension . Associated fluid tracking superiorly and inferiorly along the semimembranosu s and gastrocnemius musculature, suggestive of ruptured Stoddard's cyst. BON E: No focal or infiltrative bone marrow replacing abnormality. No acute fracture. SOFT TISSUES: Nonspecific increased signal and fluid tracking a long the distal portion of the vastus lateralis muscle and extending inferiorl y along the lateral aspect of the knee. IMPRESSION: 1. Large joint effusion with synovitis. Associated moderate size Stoddard's cyst with suspected rupture and fluid tracking superiorly and inferiorly along the posterior musc ulature of the knee. 2. Additional nonspecific increased signal and fluid tra cking along the distal portion of the vastus lateralis muscle, may represent a dditional extravasation of joint fluid, muscle strain, or less likely focal my ositis. 3. Small tear along the free margin at the body of the medial meniscus . 4. Oblique tear along the anterior horn of the lateral meniscus. 5. Low-gr rio cartilage thinning along the medial and lateral femoral condyles. Letty d by: Dr. Citlali Galdamez M.D. on 11/18/2019 4:58 PM Dictated By: ENRRIQUE GALDAMEZ MD 57 Trans cribed By: RIMMA on 11/18/191657 COPY TO: EVAN BEAR MD Serum or plasma total bilirubin measurement (mass/volume)2019-11-18 05:00:00* Test Item Value Reference Range Interpretation Comments Total Bilirubin (test code = 1975-2) 0.2 0.2-1.2 [facility]Fluor[facility] procedure less than one hour [id number] 05:00:00* Test Item Value Reference Range Interpretation Comments Aspartate Amino Transf (AST/SGOT) (test code = Aspartate Amino Transf (AST/SGOT)) 9 5-34 [facility] or plasma alanine aminotransferase measurement (enzymatic activity/volume)2019-11-18 05:00:00* Test Item Value Reference Range Interpretation Comments Alanine Aminotransferase (ALT/SGPT) (test code = 1742-6) 6 0-55 [facility] or plasma protein measurement (mass/volume)2019-11-18 05:00:00* Test Item Value Reference Range Interpretation Comments Total Protein (test code = 2885-2) 6.8 6.5-8.1 [facility] or plasma albumin measurement (mass/volume)2019-11-18 05:00:00* Test Item Value Reference Range Interpretation Comments Albumin (test code = 1751-7) 3.5 3.5-5.0 [facility] CampusPlasma globulin measurement (mass/volume) 2019-11-18 05:00:00* Test Item Value Reference Range Interpretation Comments Globulin (test code = 74665-4) 3.3 2.3-3.5 [facility] or plasma albumin/globulin mass [id number] 05:00:00* Test Item Value Reference Range Interpretation Comments Albumin/Globulin Ratio (test code = 1759-0) 1.1 0.8-2.0 [facility] or plasma alkaline phosphatase measurement (enzymatic activity/volume)2019-11-18 05:00:00* Test Item Value Reference Range Interpretation Comments Alkaline Phosphatase (test code = 6768-6) 73 40-150 [facility] CampusFluoroscopic procedure less than one hour [id number] 20:54:00* Test Item Value Reference Range Interpretation Comments Coronavirus (PCR) (test code = Coronavirus (PCR)) NOT DETECTED NOTD ETECTED SARS-CoV-2 PCRHologic Aptima SARS-CoV-2 assay is a nucleic amplification test in tended for the qualitative detection of RNA from SARS-CoV-2 from nasopharyngeal ([employer]) specimens. It is used under Emergency Use Authorization (EUA) by FDA.A posi tive result is indicative of the presence of SARS-CoV-2 RNA. Clinical correlatio n with patient history and other diagnostic information is necessary to determin e patient infection status.A negative (Not Detected) result does not preclude SA RS-CoV-2 infection. Clinical Correlation with patient history and other diagnost ic information should be used in patient management decisions.Invalid: Unable to generate a valid result on this specimen. Please submit a new specimen for repr at testing oc clinically indicated.Tesing performed by:[facility] Laboratory Services[address] [place] [id number], Harmeet keyes MD, PhDThe [facility]als [facility] CampusUS EXREMEITY VEINS UNI-HOPD 2019-11-17 18:28:00 [place] [address] Patient Name: KATI COOK MR #: [id number] : 1990 Age/Sex: 29/F Req #: [id number] Adm Physician: Ordered by: MAGDA ALEXANDER MD Report #: [id number] Location: [facility] Room/Bed: Procedure: HOPD/U S EXREMEITY VEINS UNI-HOPD Exam Date: 11/17/19 Exam Time: 1740 REPORT STATUS: Signed EXAM: Unilateral Lower Extremity Venous Duplex Ultrasound INDICATION: Lower e xtruded pain. COMPARISON: None TECHNIQUE: Maradiaga scale, color Doppler and sp ectral waveform analysis of the unilateral lower extremity deep venous system was performed. FINDINGS: Common Femoral: Fully compressible wit h normal spontaneous waveforms. Proximal Greater Saphenous: Fully c ompressible. Femoral: Fully compressible with normal spontaneous w aveforms. Normal response to augmentation. Proximal Deep Femoral: Normal spontaneous waveforms. Popliteal: Fully compressible w ith normal spontaneous waveforms. Others: There is an anechoic mass in th e popliteal region which measures approximately 2.4 x 2.2 x 4.1 cm, causing ma ss effect on the popliteal artery and veins. IMPRESSION: 1. No ev idence of deep venous thrombosis above the unilateral calf. 2. Anechoic mass in the popliteal fossa which measures up to 4.1 cm, causing mass effect on the popliteal artery and veins. Recommend an MRI of the knee on nonemergent basis for complete assessment of this finding. Signed by: Edilson Purcell MD on 6:31 PM Dictated By: EDILSON PURCELL MD 30 Transcribed By: RIMMA on 11/17/191830 COPY TO: MAGDA ALEXANDER MD CT ABD/PEL WO [id number]-[id number] 16:55:00 [place] [address] Patient Name: KATI COOK MR #: [id number] : 1990 Age/Sex: 29/F Req #: [id number] Adm Physician: Ordered by: MAGDA ALEXANDER MD Report #: [id number] Location: [facility] Room/Bed: Procedure: HOPD/C T ABD/PEL WO CONTRAST-HOPD Exam Date: 11/17/19 Exam Time: 1646 REPORT STATUS: Signed EXAM: CT Abdomen and Pelvis WITHOUT intravenous contrast INDICATION: Back pain, fever COMPARISON: CT abdomen and pelvis of 10/30/2019 TECHNIQUE: Abdomen and pelvis were scanned utilizing a multidetector helical scanner from the lung base to the pubic symphysis without administration of IV contrast. Coronal and sagittal reformations were obtained. IV CONTRAST: None ORAL CONTRAST: Water COMPLICATIONS: None RADIATION DOSE: Total DLP: 955 mGy*cm Dose modulation, iterative reconstruction, and/or w eight based adjustment of the mA/kV was utilized to reduce the radiation dose to as low as reasonably achievable. FINDINGS: LOWER THORAX: Normal. HEPATOBILIARY: No focal hepatic lesions. No biliary ductal dilatation. The gallbladder appears unremarkable. SPLEEN: No splenomegaly. PANCREAS: No focal masses or ductal dilatation. ADRENALS: No adrenal nodules. KIDNE YS/URETERS: No hydronephrosis, stones, or solid mass lesions. PELVIC ORGANS/BL ADDER: Unremarkable. PERITONEUM / RETROPERITONEUM: No free air or fluid. LYMPH NODES: No lymphadenopathy. VESSELS: Unremarkable. GI TRACT: No abno rmal bowel wall thickening. No bowel obstruction. Normal appendix. BONES AND SOFT TISSUES: Unremarkable. IMPRESSION: No acute findings in the abd omen or pelvis. Signed by: Jack Santos MD on 11/17/2019 4:59 PM Dicta heraclio By: JACK SANTOS MD 58 Transcribed By: RIMMA on 11/17/191658 COPY TO: MAGDA ALEXANDER MD C-Reactive [id number] 12:23:00* Test Item Value Reference Range Interpretation Comments CRP (test code = 676) 4.90 mg/dL 0-0.5 H JOSUE (test code = JOSUE) Metal Extrusion Supervisor ID - BROOK F Lab Interpretation (test code = 90977-6) Abnormal [facility]-REACTIVE [id number] 12:23:00* Test Item Value Reference Range Interpretation Comments C-REACTIVE PROTEIN (BEAKER) (test code = 676) 4.90 mg/dL 0.00-0.5 0 H Metal Extrusion Supervisor ID Maryana DOE FCBC with platelet count + automated [id number] 10:39:00* Test Item Value Reference Range Interpretation Comments WBC (test code = 6690-2) 6.7 3.5- 10.5 K/L RBC (test code = 789-8) 4.10 3.93- 5.22 M/L MCHC (test code = 786-4) 33.3 32.2- 35.5 GM/DL Hematocrit (test code = 4544-3) 35.7 % 34.1-44.9 MCV (test code = 787-2) 87.1 fL 79.4-94.8 MCH (test code = 785-6) 29.0 pg 25.6-32.2 RDW (test code = 788-0) 13.3 % 11.7-14.4 Platelets (test code = 777-3) 267 150- 450 K/CU MM MPV (test code = 60321-9) 11.7 fL 9.4-12.3 nRBC (test code = 413) 0 0- 0 /100 WBC % Neutros (test code = 429) 64 % % Lymphs (test code = 430) 26 % % Monos (test code = 431) 10 % % Eos (test code = 432) 0 % % Baso (test code = 437) 0 % # Neutros (test code = 670) 4.29 1.56- 6.13 K/L # Lymphs (test code = 414) 1.72 1.18- 3.74 K/L # Monos (test code = 415) 0.66 0.24- 0.36 K/L H # Eos (test code = 416) 0.02 0.04- 0.36 K/L L # Baso (test code = 417) 0.02 0.01- 0.08 K/L Immature Granulocytes-Relative (test code = 2801) 0 % 0-1 Lab Interpretation (test code = 08176-6) Abnormal [facility] W/PLT COUNT & AUTO [id number] 10:39:00* Test Item Value Reference Range Interpretation Comments WHITE BLOOD CELL COUNT (BEAKER) (test code = 775) 6.7 K/ L 3.5- 10.5 RED BLOOD CELL COUNT (BEAKER) (test code = 761) 4.10 M/ L 3.93-5 .22 HEMOGLOBIN (BEAKER) (test code = 410) 11.9 GM/DL 11.2-15.7 HEMATOCRIT (BEAKER) (test code = 411) 35.7 % 34.1-44.9 MEAN CORPUSCULAR VOLUME (BEAKER) (test code = 753) 87.1 fL 79. 4-94.8 MEAN CORPUSCULAR HEMOGLOBIN (BEAKER) (test code = 751) 29.0 pg 25.6-32.2 MEAN CORPUSCULAR HEMOGLOBIN CONC (BEAKER) (test code = 752) 33.3 GM/DL 32.2-35.5 RED CELL DISTRIBUTION WIDTH (BEAKER) (test code = 412) 13.3 % 11.7-14.4 PLATELET COUNT (BEAKER) (test code = 756) 267 K/CU MM 150-450 MEAN PLATELET VOLUME (BEAKER) (test code = 754) 11.7 fL 9.4-12 .3 NUCLEATED RED BLOOD CELLS (BEAKER) (test code = 413) 0 /100 WBC 0 -0 NEUTROPHILS RELATIVE PERCENT (BEAKER) (test code = 429) 64 % LYMPHOCYTES RELATIVE PERCENT (BEAKER) (test code = 430) 26 % MONOCYTES RELATIVE PERCENT (BEAKER) (test code = 431) 10 % EOSINOPHILS RELATIVE PERCENT (BEAKER) (test code = 432) 0 % BASOPHILS RELATIVE PERCENT (BEAKER) (test code = 437) 0 % NEUTROPHILS ABSOLUTE COUNT (BEAKER) (test code = 670) 4.29 K/ L 1.56-6.13 LYMPHOCYTES ABSOLUTE COUNT (BEAKER) (test code = 414) 1.72 K/ L 1.18-3.74 MONOCYTES ABSOLUTE COUNT (BEAKER) (test code = 415) 0.66 K/ L 0. 24-0.36 H EOSINOPHILS ABSOLUTE COUNT (BEAKER) (test code = 416) 0.02 K/ L 0.04-0.36 L BASOPHILS ABSOLUTE COUNT (BEAKER) (test code = 417) 0.02 K/ L 0. 01-0.08 IMMATURE GRANULOCYTES-RELATIVE PERCENT (BEAKER) (test code = 2801) 0 % 0-1 Comprehensive metabolic [id number] 10:27:00* Test Item Value Reference Range Interpretation Comments Protein, Total (test code = 2885-2) 8.0 6.0- 8.3 gm/dL Specimen moderately hemolyzed Albumin (test code = 61060-0) 4.0 g/dL 3.5-5 Specimen moderately hemolyzed Alkaline Phosphatase (test code = 6768-6) 79 U/L 40-150 Total Bilirubin (test code = 1975-2) 0.5 mg/dL 0.2-1.2 Specimen moderately hemolyzed Sodium (test code = 2951-2) 137 meq/L 136-145 Potassium (test code = 2823-3) 5.1 meq/L 3.5-5.1 Specimen moderately hemolyzed Chloride (test code = 2075-0) 106 meq/L 98-107 CO2 (test code = 8-9) 23 meq/L 22-29 BUN (test code = 3094-0) 5 mg/dL 7-21 L Creatinine (test code = 2160-0) 0.67 mg/dL 0.57-1.25 Specimen moderately hemolyzed Glucose (test code = 2345-7) 99 mg/dL 70-105 Calcium (test code = 81329-0) 9.1 mg/dL 8.4-10.2 AST (test code = 1920-8) 19 U/L 5-34 Spe cimen moderately hemolyzed ALT (test code = 1742-6) 11 U/L 6-55 Spe cimen moderately hemolyzed EGFR (test code = 38093-8) 124 mL/min/1.73 sq m ESTIMATED GFR IS NOT ACCURATE CREATININE CLEARANCE IN PREDICTING GLOMERULAR FILTRATION RATE. ESTIMATED GFR IS NOT APPLICABLE FOR DIALYSIS PATIENTS. JOSUE (test code = JOSUE) Metal Extrusion Supervisor ID - BROOK F Lab Interpretation (test code = 90289-1) Abnormal [facility] CenterCOMPREHENSIVE METABOLIC [id number] 10:27:00* Test Item Value Reference Range Interpretation Comments TOTAL PROTEIN (BEAKER) (test code = 770) 8.0 gm/dL 6.0-8.3 Specimen moderately hemolyzed ALBUMIN (BEAKER) (test code = 1145) 4.0 g/dL 3.5-5.0 Specimen moderately hemolyzed ALKALINE PHOSPHATASE (BEAKER) (test code = 346) 79 U/L 40-150 BILIRUBIN TOTAL (BEAKER) (test code = 377) 0.5 mg/dL 0.2-1.2 Specimen moderately hemolyzed SODIUM (BEAKER) (test code = 381) 137 meq/L 136-145 POTASSIUM (BEAKER) (test code = 379) 5.1 meq/L 3.5-5.1 Specimen moderately hemolyzed CHLORIDE (BEAKER) (test code = 382) 106 meq/L 98-107 CO2 (BEAKER) (test code = 355) 23 meq/L 22-29 BLOOD UREA NITROGEN (BEAKER) (test code = 354) 5 mg/dL 7-21 L CREATININE (BEAKER) (test code = 358) 0.67 mg/dL 0.57-1.25 Specimen moderately hemolyzed GLUCOSE RANDOM (BEAKER) (test code = 652) 99 mg/dL 70-105 CALCIUM (BEAKER) (test code = 697) 9.1 mg/dL 8.4-10.2 AST (SGOT) (BEAKER) (test code = 353) 19 U/L 5-34 Specimen moderately hemolyzed ALT (SGPT) (BEAKER) (test code = 347) 11 U/L 6-55 Specimen moderately hemolyzed EGFR (BEAKER) (test code = 1092) 124 mL/min/1.73 sq m ESTIMATED GFR IS NOT ACCURATE CREATININE CLEARANCE IN PREDICTING GLOMERULAR FILTRATION RATE. ESTIMATED GFR IS NOT APPLICABLE FOR DIALYSIS PATIENTS. Metal Extrusion Supervisor ID - BROOK REEVESD, SPINE, LUMBAR, COMPLETE (MIN 4 VIEWS)2019-11-05 09:34:00Reason for exam:->BACK PAINFINAL REPORT RAD, SPINE, LUMBAR, COMPLETE (MIN 4 VIEWS), RAD, SPINE, THORACIC, 2 VIEWS INDICATION: BACK PAIN COMPARISON: None TECHNIQUE: AP and lateral radiographs of the thoracic and lumbar spine FINDINGS/IMPRESSION:No acute fracture or malalignment Signed: Rani Merrill Verified Date/Time: 11/05/2019 09:34:35 Reading Location: [facility] Radiology Reading Room , SPINE, THORACIC, 2 VIEWS 2019-11-05 09:34:00Reason for exam:->BACK PAINFINAL REPORT RAD, SPINE, LUMBAR, COMPLETE (MIN 4 VIEWS), RAD, SPINE, THORACIC, 2 VIEWS INDICATION: BACK PAIN COMPARISON: None TECHNIQUE: AP and lateral radiographs of the thoracic and lumbar spine FINDINGS/IMPRESSION:No acute fracture or malalignment Signed: Rani Merrill Verified Date/Time: 11/05/2019 09:34:35 Reading Location: [facility] Radiology Reading Room spine lumbar complete 4 views [id number] 09:34:00Interface, External Ris In - 11/05/2019 9:36 AM CDTFINAL REPORT RAD, SPINE, LUMBAR, COMPLETE (MIN 4 VIEWS), RAD, SPINE, THORACIC, 2 VIEWS INDICATION: BACK PAIN COMPARISON: None TECHNIQUE: AP and lateral radiographs of the thoracic and lumbar spine FINDINGS/IMPRESSION:No acute fracture or malalignment Signed: Rani Merrill Verified Date/Time: 11/05/2019 09:34:35 Reading Location: [facility] Radiology Reading [facility] 2 [id number] 09:34:00Interface, External Ris In - 11/05/2019 9:36 AM CDTFINAL REPORT RAD, SPINE, LUMBAR, COMPLETE (MIN 4 VIEWS), RAD, SPINE, THORACIC, 2 VIEWS INDICATION: BACK PAIN COMPARISON: None TECHNIQUE: AP and lateral radiographs of the thoracic and lumbar spine FINDINGS/IMPRESSION:No acute fracture or malalignment Signed: Rani Merrill Verified Date/Time: 11/05/2019 09:34:35 Reading Location: [facility] Radiology Reading [facility], 2-3 VIEWS, LEFT, TO INCL PELVIS WHEN [id number] 09:33:00Reason for exam:->BACK PAINFINAL REPORT RAD, HIP, 2-3 VIEWS, LEFT, TO INCL PELVIS WHEN PERFORMED INDICATION: BACK PAIN COMPARISON: None TECHNIQUE: AP and lateral radiographs of the hip FINDINGS/IMPRESSION:No acute fracture or malalignment Signed: Rani Merrill Verified Date/Time: 11/05/2019 09:33:32 Reading Location: [facility] Radiology Reading Room hip 2 views [id number] 09:33:00Interface, External Ris In - 11/05/2019 9:35 AM CDTFINAL REPORT RAD, HIP, 2-3 VIEWS, LEFT, TO INCL PELVIS WHEN PERFORMED INDICATION: BACK PAIN COMPARISON: None TECHNIQUE: AP and lateral radiographs of the hip FINDINGS/IMPRESSION:No acute fracture or malalignment Signed: Rani Merrill Verified Date/Time: 11/05/2019 09:33:32 Reading Location: [facility] Radiology Reading [facility] CHEST, 2 [id number] 09:32:00Reason for exam:->BACK PAINFINAL REPORT INDICATION: BACK PAIN COMPARISON: None TECHNIQUE: Frontal and lateral views of the chest. FINDINGS: Lungs and pleura: Clear lungs. No effusion.Heart and mediastinum: Normal heart size. Unremarkable mediastinal contours.Osseous structures: No acute abnormality.Additional findings: None. IMPRESSION: No acute intrathoracic abnormality. Signed: Rani Merrill Verified Date/Time: 11/05/2019 09:32:46 Reading Location: [facility] dioly Reading Room chest 2 [id number] 09:32:00Interface, External Ris In - 11/05/2019 9:34 AM CDTFINAL REPORT INDICATION: BACK PAIN COMPARISON: None TECHNIQUE: Frontal and lateral views of the chest. FINDINGS: Lungs and pleura: Clear lungs. No effusion.Heart and mediastinum: Normal heart size. Unremarkable mediastinal contours.Osseous structures: No acute abnormality.Additional findings: None. IMPRESSION: No acute intrathoracic abnormality. Signed: Rani Merrill Verified Date/Time: 11/05/2019 09:32:46 Reading Location: [facility] Radiology Reading Room [facility] CenterUrinalysis w/Microscopic + Reflex to [id number] 09:09:00* Test Item Value Reference Range Interpretation Comments Color, UA (test code = 5778-6) Colorless Clarity, UA (test code = 5767-9) Clear Specific Dexter, UA (test code = 5811-5) 1.005 1.001-1.035 pH, UA (test code = 5803-2) 7.0 5.0-8.0 Protein, UA (test code = 31437-6) Negative Negative Glucose, UA (test code = 365) Negative Negative Ketones, UA (test code = 2514-8) Negative Negative Bilirubin, UA (test code = 04839-0) Negative Negative Blood, UA (test code = 41576-9) Negative Negative Nitrite, UA (test code = 5802-4) Negative Negative Leukocytes, UA (test code = 5799-2) Negative Negative Urobilinogen, UA (test code = 58788-6) 0.2 mg/dL 0.2-1 RBC, UA (test code = 98638-1) 0 /HPF WBC, UA (test code = 5821-4) 1 /HPF Squam Epithel, UA (test code = 77842-5) <1 /HPF Specimen Source (test code = 2795) JOSUE (test code = JOSUE) Metal Extrusion Supervisor ID - [auto]Metal Extrusion Supervisor ID - tech [facility] CenterURINALYSIS W/ REFLEX URINE [id number] 09:09:00* Test Item Value Reference Range Interpretation Comments COLOR (BEAKER) (test code = 470) Colorless CLARITY (BEAKER) (test code = 469) Clear SPECIFIC GRAVITY UA (BEAKER) (test code = 468) 1.005 1.001-1 .035 PH UA (BEAKER) (test code = 467) 7.0 5.0-8.0 PROTEIN UA (BEAKER) (test code = 464) Negative Negative GLUCOSE UA (BEAKER) (test code = 365) Negative Negative KETONES UA (BEAKER) (test code = 371) Negative Negative BILIRUBIN UA (BEAKER) (test code = 462) Negative Negative BLOOD UA (BEAKER) (test code = 461) Negative Negative NITRITE UA (BEAKER) (test code = 465) Negative Negative LEUKOCYTE ESTERASE UA (BEAKER) (test code = 466) Negative Negat marlene UROBILINOGEN UA (BEAKER) (test code = 463) 0.2 mg/dL 0.2-1.0 RBC UA (BEAKER) (test code = 519) 0 /HPF WBC UA (BEAKER) (test code = 520) 1 /HPF SQUAMOUS EPITHELIAL (BEAKER) (test code = 516) < /HPF SOURCE(BEAKER) (test code = 2795) Metal Extrusion Supervisor ID - [auto]Metal Extrusion Supervisor ID - techPregnancy screen, [id number] 08:34:00 * Test Item Value Reference Range Interpretation Comments Preg Test, Ur (test code = 2112-1) Negative [facility] CenterPREGNANCY SCREEN, [id number] 08:34:00* Test Item Value Reference Range Interpretation Comments TEST URINE (BEAKER) (test code = 583) Negative CT ABD/PEL WITH [id number]-[id number] 23:03:00 [facility] [address] [address] Patient Name: CARRIERKATI MR #: [id number] : 1990 Age/Sex: 29/F Req #: [id number] Adm Physician: Ordered by: KECIA MARTINEZ MD Report #: [id number] Location: [facility] Room/Bed: Procedure: HOPD/CT ABD/PEL WITH CONTRAST-HOPD Exam Date: 10/30/19 Exam Time: 2211 REPORT STATUS: Signed EXAM: CT Abdomen and Pelvis WITH contrast INDICATION: abdominal p ain [id number] 2211 COMPARISON: None. TECHNIQUE: Abdomen and pelvis wer e scanned utilizing a multidetector helical scanner from the lung base to the pubic symphysis after administration of IV contrast. Coronal and sagittal refo rmations were obtained. Dose modulation, iterative reconstruction, and/or weig ht based adjustment of the mA/kV was utilized to reduce the radiation dose to as low as reasonably achievable. Routine protocol was performed. Scan was perf ormed when during portal venous phase. IV CONTRAST: 100 mL of Isovu e-370 ORAL CONTRAST: None COMPLICATIONS: None RADIA TION DOSE: Total DLP: 807.05 mGy*cm Estimated effective dose: (DLP x 0.015 x size factor) mSv CTDIvol has been reviewed. It is below the li mits set by the Radiation Protocol Committee (RPC). FINDINGS: LINES and TUBES: None. LOWER THORAX: Unremarkable HEPATOBILIARY: No fo florina hepatic lesions. No biliary ductal dilation. GALLBLADDER: No radio-opa que stones or sludge. No wall thickening. SPLEEN: No splenomegaly. P ANCREAS: No focal masses or ductal dilatation. ADRENALS: No adrenal nodul es KIDNEYS/URETERS: Kidneys enhance symmetrically. No hydronephrosis. No cystic or solid mass lesions. No stones. GI TRACT: No abnormal disten tion, wall thickening, or evidence of bowel obstruction. Appendix is nor mal. PELVIC ORGANS/BLADDER: Myomatous uterus. Bladder is unremarkable. LYMPH NODES: No lymphadenopathy. VESSELS: Unremarkable. PERITONEUM / RETROPERITONEUM: No free air or fluid. BONES: Unremarkable. SOFT TISSU ES: Unremarkable. IMPRESSION: 1. No acute inflammatory proc ess in the abdomen/pelvis. 2. Myomatous uterus. Signed by: Dr. Gerber wheeler MD on 10/30/2019 11:07 PM Dictated By: GERBER WHITTINGTON MD Electronical ly Signed By: GERBER WHITTINGTON MD on 10/30/192306 Transcribed By: RIMMA on 07/13 COPY TO: KECIA MARTINEZ MD - XR CHEST 2 [id number] 01:03:00 FAX: Michele Paz MD [phone] [place]: St: REG Name: KATI WARD [facility] : [birth year] Age/S: 28/F [address] [place] [address] Unit #: [id number] Loc: [address] [address] Phys: Michele Paz MD Acct: [id number] Dis Date: Status: REG ER PHONE #: [phone] Exam Date: 05/12/2018 004 FAX #: [phone] Reason: cough EXAMS: CPT CODE: [id number] XR CHEST 2 V 09062 Chest, 2 views dated 05/12/2018. HISTORY: Cough. Body aches. Fever. Comparison is mad e to a prior study dated 07/30/2011. The heart is normal in size. T he cardiomediastinal shadow appears within normal limits. The lungs appea r clear. The pulmonary vasculature is normal in caliber. No acute pleura l space abnormalities are detected. IMPRESSION: 1. No radiographic evidence of acute cardiopulmonary disease. S L: 131 at 0103 Reported and signed by: Bill Starr M.D. CC: Michele Paz MD Technologist: Elisa Walsh RT(R) Trnscrd Date/Time/By: 05/13/19 19 (0103) : By: Smith Orig Print D/T: S: 05/12/2018 (0106) PAGE 1 Signed Report
--- OUTSIDE RECORDS SUMMARY | 2019-11-28 13:31 | XMS REPORT | Clinical Summary ---
Author Author JESUSITA [facility] Address Unknown Phone Unavailable Care Team Providers Care Registered Nurse Nursery Name Role Phone Sharpless PCP Allergies Comments Active Allergy Reactions Severity Noted Date Amoxicillin Rash Low 08/21/2012 Medications End Date Status Medication Sig Dispensed Refills Start Date 11/15/2019 baclofen (LIORESAL) 10 MG Take 1 tablet 30 tablet 0 tablet (10 mg total) 0 by mouth 3 (three) times daily for 10 days. 11/10/2019 ketorolac (TORADOL) 10 mg Take 1 tablet 20 tablet 0 tablet (10 mg total) 0 by mouth every 6 (six) hours as needed for Pain for up to 5 days. Active Problems Not on file Encounters Care Team Description Date Type Specialty GlynnHarmeet MD Lumbar back pain (Primary Dx); Strain of lumbar paraspinal muscle, initial encounter; Elevated C-reactive protein (CRP) 11/05/2019 Emergency Emergency Medicine 11/05/2019 Travel after 11/27/2018 Social History Date Tobacco Use Types Packs/Day Years Used Never Smoker Smokeless Tobacco: Never Used Alcohol Use Drinks/Week oz/Week Comments No Sex Assigned at Date Recorded Not on file Industry Job Start Date Occupation Not on file Not on file Not on file Travel End Travel History Travel Start No recent travel history available. Last Filed Vital Signs Time Taken Vital Sign Reading 11/05/2019 12:45 PM CDT Blood Pressure 133/85 11/05/2019 12:45 PM CDT Pulse 81 11/05/2019 12:45 PM CDT Temperature 36.8 C (98.2 F) 11/05/2019 12:45 PM CDT Respiratory Rate 16 11/05/2019 12:45 PM CDT Oxygen Saturation 99% - Inhaled Oxygen - Concentration 11/05/2019 7:20 AM CDT Weight 104.3 kg (230 lb) 11/05/2019 7:20 AM CDT Height 157.5 cm (5' 2") 11/05/2019 7:20 AM CDT Body Mass Index 42.07 Plan of Treatment Health Maintenance Due Date Last Done Comments LIPID PANEL 2008 CERVICAL CANCER SCREENING 2009 PAP ONLY (Age 21-65) INFLUENZA VACCINE (#1) 2019 Procedures Comments Procedure Name Priority Date/Time Associated Diag nosis C-REACTIVE PROTEIN STAT 11/05/2019 11:47 AM CDT CBC W/PLT COUNT & AUTO STAT 11/05/2019 DIFFERENTIAL 9:46 AM CDT COMPREHENSIVE METABOLIC STAT 11/05/2019 PANEL 9:46 AM CDT CBC W/PLT COUNT & AUTO STAT 11/05/2019 DIFFERENTIAL 9:46 AM CDT XR SPINE LUMBAR COMPLETE STAT 11/05/2019 MIN 4 VIEWS 9:32 AM CDT XR SPINE THORACIC 2 VIEWS STAT 11/05/2019 9:31 AM CDT XR HIP 2 VIEWS LEFT STAT 11/05/2019 9:20 AM CDT XR CHEST 2 VIEWS STAT 11/05/2019 9:10 AM CDT URINALYSIS W/ REFLEX STAT 11/05/2019 URINE CULTURE 8:00 AM CDT SCREEN, URINE STAT 11/05/2019 8:00 AM CDT after 11/27/2018 Results * C-Reactive Protein (11/05/2019 11:47 AM CDT) CRP 4.90 (H) 0.00 - 0.50 mg/dL [facility] Specimen Blood Narrative Performed At De Icer Installer ID - BROOK Neville [facility] Performing Organization Address City/State/Zipcode Ph one Number [address] [facility] * CBC with platelet count + automated diff (11/05/2019 9:46 AM CDT) WBC 6.7 3.5 - 10.5 K/L [facility] RBC 4.10 3.93 - 5.22 M/L [facility] Hemoglobin 11.9 11.2 - 15.7 GM/DL [facility] Hematocrit 35.7 34.1 - 44.9 % [facility] MCV 87.1 79.4 - 94.8 fL [facility] MCH 29.0 25.6 - 32.2 pg [facility] MCHC 33.3 32.2 - 35.5 GM/DL [facility] RDW 13.3 11.7 - 14.4 % [facility] Platelets 267 150 - 450 K/CU MM [facility] MPV 11.7 9.4 - 12.3 fL [facility] nRBC 0 0 - 0 /100 WBC [facility] % Neutros 64 % [facility] % Lymphs 26 % [facility] % Monos 10 % [facility] % Eos 0 % [facility] % Baso 0 % [facility] # Neutros 4.29 1.56 - 6.13 K/L [facility] # Lymphs 1.72 1.18 - 3.74 K/L [facility] # Monos 0.66 (H) 0.24 - 0.36 K/L [facility] # Eos 0.02 (L) 0.04 - 0.36 K/L [facility] # Baso 0.02 0.01 - 0.08 K/L [facility] Immature 0 0 - 1 % [facility] Granulocytes-Relative [facility] Specimen Blood Performing Organization Address City/State/Zipcode Ph one Number [facility] [address] [place], [place] [address] MED[facility]ENTER * Comprehensive metabolic panel (11/05/2019 9:46 AM CDT) Protein, Total 8.0Comment: Specimen 6.0 - 8.3 gm/dL [facility] moderately hemolyzed [facility] Albumin 4.0Comment: Specimen 3.5 - 5.0 g/dL [facility] moderately hemolyzed [facility] Alkaline Phosphatase 79 40 - 150 U/L [facility] Total Bilirubin 0.5Comment: Specimen 0.2 - 1.2 mg/dL [facility] moderately hemolyzed [facility] Sodium 137 136 - 145 meq/L [facility] Potassium 5.1Comment: Specimen 3.5 - 5.1 meq/L [facility] moderately hemolyzed [facility] Chloride 106 98 - 107 meq/L [facility] CO2 23 22 - 29 meq/L [facility] BUN 5 (L) 7 - 21 mg/dL [facility] Creatinine 0.67Comment: Specimen 0.57 - 1.25 mg/dL [facility] moderately hemolyzed [facility] Glucose 99 70 - 105 mg/dL [facility] Calcium 9.1 8.4 - 10.2 mg/dL [facility] AST 19Comment: Specimen moderately 5 - 34 U/L [facility] hemolyzed [facility] ALT 11Comment: Specimen moderately 6 - 55 U/L [facility] hemolyzed [facility] EGFR 124Comment: ESTIMATED GFR IS mL/min/1.73 sq m [facility] NOT ACCURATE CREATININE [facility] CLEARANCE IN PREDICTING GLOMERULAR FILTRATION RATE. ESTIMATED GFR IS NOT APPLICABLE FOR DIALYSIS PATIENTS. Specimen Blood Narrative Performed At De Icer Installer ID - CAROLINA Kelin [facility] Performing Organization Address City/State/[facility] Ph one Number [facility] [address] [id number] MEDICAL CENTER * XR spine lumbar complete 4 views min (11/05/2019 9:32 AM CDT) Specimen Narrative Performed At FINAL REPORT [facility] RAD, SPINE, LUMBAR, COMPLETE (MIN 4 VIE WS), RAD, SPINE, THORACIC, 2 VIEWS INDICATION: BACK PAIN COMPARISON: None TECHNIQUE: AP and lateral radiographs o f the thoracic and lumbar spine FINDINGS/IMPRESSION: No acute fracture or malalignment Signed: Lizzeth Patrick MD Report Verified Date/Time: 0 09:34:35 Reading Location: [facility] Room Procedure Note Interface, External Ris In - 11/05/2019 9:36 AM CDT FINAL REPORT RAD, SPINE, LUMBAR, COMPLETE (MIN 4 VIEWS), RAD, SPINE, THORACIC, 2 VIEWS INDICATION: BACK PAIN COMPARISON: None TECHNIQUE: AP and lateral radiographs of the thoracic and lumbar spine FINDINGS/IMPRESSION: No acute fracture or malalignment Signed: Lizzeth Patrick MD Report Verified Date/Time: 11/05/2019 09:34:35 Reading Location: [employer] Reading Room Performing Organization Address City/[facility] Ph one Number GE [facility] * XR spine thoracic 2 views (11/05/2019 9:31 AM CDT) Specimen Narrative Performed At FINAL REPORT GE RIS RAD, SPINE, LUMBAR, COMPLETE (MIN 4 VIE WS), RAD, SPINE, THORACIC, 2 VIEWS INDICATION: BACK PAIN COMPARISON: None TECHNIQUE: AP and lateral radiographs o f the thoracic and lumbar spine FINDINGS/IMPRESSION: No acute fracture or malalignment Signed: Lizzeth Patrick MD Report Verified Date/Time: 0 09:34:35 Reading Location: [facility] Reading Room Procedure Note Interface, External Ris In - 11/05/2019 9:36 AM CDT FINAL REPORT RAD, SPINE, LUMBAR, COMPLETE (MIN 4 VIEWS), RAD, SPINE, THORACIC, 2 VIEWS INDICATION: BACK PAIN COMPARISON: None TECHNIQUE: AP and lateral radiographs of the thoracic and lumbar spine FINDINGS/IMPRESSION: No acute fracture or malalignment Signed: Lizzeth Patrick MD Report Verified Date/Time: 11/05/2019 09:34:35 Reading Location: [facility] Reading Room Performing Organization Address [facility] Ph one Number [facility] * XR hip 2 views left (11/05/2019 9:20 AM CDT) Specimen Narrative Performed At FINAL REPORT GE [facility]IS RAD, HIP, 2-3 VIEWS, LEFT, TO INCL PELV IS WHEN PERFORMED INDICATION: BACK PAIN COMPARISON: None TECHNIQUE: AP and lateral radiographs o f the hip FINDINGS/IMPRESSION: No acute fracture or malalignment Signed: Lizzeth Patrick MD Report Verified Date/Time: 0 09:33:32 Reading Location: [place] [facility] Reading Room Procedure Note Interface, External Ris In - 11/05/2019 9:35 AM CDT FINAL REPORT RAD, HIP, 2-3 VIEWS, LEFT, TO INCL PELVIS WHEN PERFORMED INDICATION: BACK PAIN COMPARISON: None TECHNIQUE: AP and lateral radiographs of the hip FINDINGS/IMPRESSION: No acute fracture or malalignment Signed: Lizzeth Patrick MD Report Verified Date/Time: 11/05/2019 09:33:32 Reading Location: [facility] Reading Room Performing Organization Address [facility] Ph one Number [facility] * XR chest 2 views (11/05/2019 9:10 AM CDT) Specimen Narrative Performed At FINAL REPORT GE [facility]IS INDICATION: BACK PAIN COMPARISON: None TECHNIQUE: Frontal and lateral views of the chest. FINDINGS: Lungs and pleura: Clear lungs. No effus ion. Heart and mediastinum: Normal heart siz e. Unremarkable mediastinal contours. Osseous structures: No acute abnormalit y. Additional findings: None. IMPRESSION: No acute intrathoracic abnormality. Signed: Lizzeth Patrick MD Report Verified Date/Time: 0 09:32:46 Reading Location: [facility] Radiolo gy Reading Room Procedure Note Interface, External Ris In - 11/05/2019 9:34 AM CDT FINAL REPORT INDICATION: BACK PAIN COMPARISON: None TECHNIQUE: Frontal and lateral views of the chest. FINDINGS: Lungs and pleura: Clear lungs. No effusion. Heart and mediastinum: Normal heart size. Unremarkable mediastinal contours. Osseous structures: No acute abnormality. Additional findings: None. IMPRESSION: No acute intrathoracic abnormality. Signed: Lizzeth Patrick MD Report Verified Date/Time: 11/05/2019 09:32:46 Reading Location: [facility] Radiology Reading Room Performing Organization Address [facility] Ph one Number [facility] * Urinalysis w/Microscopic + Reflex to Culture (11/05/2019 8:00 AM CDT) Color, UA Colorless [facility] Clarity, UA Clear [facility] Specific [place], UA 1.005 1.001 - 1.035 [facility] pH, UA 7.0 5.0 - 8.0 [facility] Protein, UA Negative Negative [facility] Glucose, UA Negative Negative [facility] Ketones, UA Negative Negative [facility] Bilirubin, UA Negative Negative [facility] Blood, UA Negative Negative [facility] Nitrite, UA Negative Negative [facility] Leukocytes, UA Negative Negative [facility] Urobilinogen, UA 0.2 0.2 - 1.0 mg/dL [facility] RBC, UA 0 /HPF [facility] WBC, UA 1 /HPF [facility] Squam Epithel, UA <1 /HPF [facility] Specimen Source [facility] Specimen Urine Narrative Performed At De Icer Installer ID - [auto] [facility] De Icer Installer ID - tech [facility] Performing Organization Address City/[facility] Cent[facility] Ph one Number [facility] [address] [place] [address] [facility] * screen, urine (11/05/2019 8:00 AM CDT) Preg Test, Ur Negative [facility] Specimen Urine Performing Organization Address City/[facility] Ph one Number [facility] [address] [place], [place] [address] [facility] after 11/27/2018 Insurance Payer Benefit Subscriber ID Type Phone Address Plan / Group [facility] xxxxxxxxx [employer] CHOICE POS [phone]
[2019-11-28] MEDS ORDERED: HYDROCODONE/APAP 5MG-325MG TAB PO ONE (13:45)
[2019-11-28] MEDS ORDERED: HYDROCODONE/APAP 5MG-325MG TAB ONE (13:48)
[2019-11-28] MEDS ORDERED: ULTRAM50 MG PO (13:48)
[2019-11-28] MEDS ORDERED: CYCLOBENZAPRINE10 MG PO (13:50)
[2019-11-28 14:19] VITALS: BP 148/79
--- NOTE | 2019-11-28 14:31 | Emergency Department Note ---
History of Present Illnes History of Present Illness Chief Complaint: Extremity Trauma/Pain History of Present Illness This is a 29 year old female who presents with left hip pain X 3 days. Patient slipped on slick floor around 5 weeks ago. Fell backwards. Hurt Rt. thigh where landed on dog bowl. States minimal pain after fall. Developed bilateral knee/pain and swelling about 4 weeks ago, leading her to be admitted and have bilateral knees drained. States knee fluid was negative for infection. D/C 11/20 feeling much better and able to walk. States knees were still "sore", but still returned to her normal routine and weight bearing. X3 days has had gradual increasing pain just above left hip and radiating down posterior/lateral aspect of thigh. "shooting pain" does not extend past knee. No numbness, ti ngling, weakness. No loss of bowel or bladder function. No trauma other than fall above. Historian: Patient Arrival Mode: Car Dowel Pin Man Required: No Onset (how long ago): day(s) Radiation: Reports extremity Severity: severe Duration (how long): day(s) Timing of current episode: constant Progression: worsening Chronicity: new Context: Reports trauma/injury Relieving factors: immobilization, rest Exacerbating factors: movement Associated symptoms: Denies confusion, Denies chest pain, Denies cough, Denies diaphoresis, Denies fever/chills, Denies headaches, Denies loss of appetite, D enies nausea/vomiting, Denies shortness of breath Past Medical/Family History Physician Review I have reviewed the patient's past medical and family history. Any updates have been documented here. Past Medical History Recent Fever: No Clinical Suspicion of Infectio: No New/Unexplained Change in Ment: No Past Medical History: None Other Medical History: HEART MURMER () Past Surgical History: None Other Surgery: wisdom tooth (right lower jaw) Social History Smoking Cessation: Never Smoker Counseling Performed: No Alcohol Use: None Any Illegal Drug Use: No Physically hurt or threatened: No Other Last Tetanus: < 5 years; Any Pre-Existing Lines (PICC,: No Review of Systems Review of Systems Constitutional: Reports no symptoms EENTM: Reports no symptoms Cardiovascular: Reports no symptoms Respiratory: Reports no symptoms Gastrointestinal: Reports no symptoms Genitourinary: Denies discharge, Denies dysuria Musculoskeletal: Reports as per HPI Integumentary: Denies rash Neurological: Denies headache, Denies numbness, Denies paresthesia, Denies t ingling, Denies weakness Endocrine: Denies increased urination Hematological/Lymphatic: Denies blood clots Physical Exam Related Data Allergies: Coded Allergies: amoxicillin (Verified Allergy, Intermediate, rash/hives/itching, 11/28/19) Triage Vital Signs Vital Signs Date Time Temp Pulse Resp B/P (MAP) Pulse Ox O2 Delivery O2 Flow Rate FiO2 11/28/19 12:52 99.1 104 18 154/81 98 Room Air Vital signs reviewed: No Physical Exam CONSTITUTIONAL Constitutional: Present well-developed, Present well-nourished HENT HENT: Present normocephalic, Present atraumatic, Present oropharynx clear/moist, Present nose normal HENT L/R: Present left ext ear normal, Present right ext ear normal EYES Eyes: Reports PERRL, Reports conjunctivae normal NECK Neck: Present ROM normal PULMONARY Pulmonary: Present effort normal, Present breath sounds normal CARDIOVASCULAR Cardiovascular: Present regular rhythm, Present heart sounds normal, Present capillary refill normal, Present normal rate GASTROINTESTINAL Abdominal: Present soft, Present nontender, Present bowel sounds normal, Present other (No pulsitile mass); Absent mass, Absent left CVA tenderness, Absent right CVA tenderness GENITOURINARY Genitourinary: Present exam deferred SKIN Skin: Present warm, Present dry MUSCULOSKELETAL Left hip/back: no tenderness with palpation. FROM of left hip, but with pain. Negative straight leg raise bilaterally. Gait with limp favoring LLE. LTSI over entire left LE. Hip not warm to touch. No pain with palpation of lumbar spine. Musculoskeletal: Absent tenderness NEUROLOGICAL Neurological: Present alert, Present oriented x 3, Present no gross motor or sensory deficits, Present abnormal gait; Absent sensory deficit PSYCHOLOGICAL Psychological: Present mood/affect normal, Present judgement normal Results Laboratory Laboratory UA: Small blood, SG > 1.030, neg nit/toma/glu/jarod/ket. protein 30mg/dL Lab results reviewed: Yes Procedures Pulse Oximetry Pulse ox probe location: digit - finger Initial readin Readin Actions taking: none Additional comments on room air, impression: normal Assessment & Plan Medical Decision Making MDM Review old chart: Discharge 11/20: MRI left knee with large joint effusion with synovitis & moderate-sized Stoddard's cyst with suspected rupture and fluid tracking posterior, inferior along the posterior musculature of the knee. There is also a small tear along the margin of the medial meniscus and oblique tear along the anterior horn of the lateral meniscus. Right knee MRI showed lentiform-shaped lesion measuring up to 7 cm, extending inferiorly from the popliteal fossa. There is superior aspect of the lesion abuts the posterior joint recess without definite communication of joint fluid. There is large joint effusion with synovitis noted as well. The repeated right knee MRI with contrast showed lentiform-shaped mass extending inferiorly from the popliteal fossa with diffuse enhancement on post-contrast sequence. Mass is indeterminate with differential diagnosis includes soft tissue neoplasm, peripheral nerve sheath tumor, fasciitis, fibromatosis, or focal nodular synovitis. Patient with small hematuria on UA. Spoke with patient about kidney stone. Do not suspect kidney stone clinically due to pain worse with ROM and weight bearing. Reviewed old chart and patient had CT abd/pelvis on 10/30/2019 which showed not stones in kidneys. Discussed imaging options of lft hip/back with patient. Patient with no recent trauma. No indication for Xray, may need outpatient MRI. Gave strict return precautions. Assessment & Plan Final Impression: (1) Sciatica (2) Sciatica of left side Depart Disposition: HOME, SELF-CARE Last Vital Signs Date Time Temp Pulse Resp B/P (MAP) Pulse Ox O2 Delivery O2 Flow Rate FiO2 11/28/19 12:52 99.1 104 18 154/81 98 Room Air Home Meds Active Scripts Cyclobenzaprine Hcl (CYCLOBENZAPRINE HCL) 10 Mg Tablet, 10 MG PO TID PRN for MUSCLE SPASMS, #30 TAB Prov:NEAL ESPINOZA MD 11/28/19 Tramadol Hcl (ULTRAM) 50 Mg Tablet, 50 MG PO Q6HR PRN for ALLERGY, #60 TAB Prov:NEAL ESPINOZA MD 11/28/19 Famotidine (FAMOTIDINE) 20 Mg Tab, 40 MG PO DAILY for acid reflux, #30 TAB 0 Refills Prov:KECIA MARTINEZ MD 10/30/19 Dicyclomine Hcl (DICYCLOMINE HCL) 20 Mg Tablet, 1 TAB PO QID PRN for abdominal pain or cramping, #20 TAB 0 Refills Prov:KECIA MARTINEZ MD 10/30/19 Ondansetron (ONDANSETRON ODT) 8 Mg Tab.rapdis, 4 MG PO Q6H PRN for nausea, #20 TAB 0 Refills Prov:KECIA MARTINEZ MD 10/30/19 Medications in the ED Acetaminophen/ Hydrocodone Bitart 2 ea ONCE ONCE PO ; Start 11/28/19 at 13:45; Stop 11/28/19 at 13:46; Status DC Acetaminophen/ Hydrocodone Bitart 2 ea STK-MED ONCE .ROUTE ; Start 11/28/19 at 13:48; Stop 11/28/19 at 13:44; Status DC NEAL ESPINOZA MD Nov 28, 2019 13:58
== END 2019-11-28 14:08 | disposition home or self-care (01) ==
LOC: FSED 13:09
DX: M54.32 Sciatica, left side (principal); M25.552 Pain in left hip; M25.562 Pain in left knee; M25.561 Pain in right knee; W01.0XXA Fall on same level from slipping, tripping and stumbling without subsequent striking against object, initial encounter; Y92.008 Other place in unspecified non-institutional (private) residence as the place of occurrence of the external cause
CPT/HCPCS: 81003; 81025; 99283

== ENCOUNTER 2020-01-03 04:57 | Emergency (ER) | payer OTHER ==
[~2020-01-03] VITALS: Ht 157.5 cm; Wt 109.3 kg
[~2020-01-03 04:57] MED LIST changes: +CYCLOBENZAPRINE10 MG PO; +ULTRAM50 MG PO
--- OUTSIDE RECORDS SUMMARY | 2020-01-03 05:32 | XMS REPORT | Continuity of Care Document ---
Author Author [facility] t Organization [facility] Address [address] [place] [address] Phone Unavailable Care Team Providers Care Head Bookkeeper Name Role Phone NONSTAFF PCP Unavailable Rick PALACIOS, Lion Ledbetter Attphys [phone] Gus PALACIOS, Pilar Pena Attphys [phone] EVAN BEAR Attphyora Unavailable Suyapa Maki MD Attphys SUYAPA MAKI Attphys Unavailable Roxi MARTINEZ Attphys Unavailable EVAN BEAR Admphys Unavailable Payers Payer Name Policy Type Policy Number Effective Date Expiration Date S jens [facility] [id number] [id number] 2019 00:00:00 Cody [facility] Umr Ppo [id number] 2019 00:00:00 [facility] Ora jones [facility] [employer] [place] RES[employer] CHOICE [id number] 2019 00:00:00 [facility] Problems Condition Name Condition Details Condition Category Status Onset Date Resolution Date Last Treatment Date Treating Clinician Comments Source Diarrhea Problem Active [facility] Nausea Problem Active [facility] Abdominal pain Problem Active [facility] Gastritis Problem Active [facility] Back pain Problem Active [facility] Urinary tract infection Problem Active [facility] Fever Problem Active [facility] Soft tissue lesion of knee region Problem Active [facility] Allergies, Adverse Reactions, Alerts Allergy Name Allergy Type Status Severity Reaction(s) Onset Date Inacti ve Date Treating Clinician Comments Source Amoxicillin Propensity to adverse reactions to drug Active Hives 2019-12-07 00:00:00 Cody serna Amoxicillin Allergy to substance Active Moderate rash/hives/itc shahriar 2019-11-28 00:00:00 [facility] amoxicillin DA Active U 2018-05-12 00:00:00 [facility] amoxicillin DA Active U 2012-09-16 00:00:00 [facility] Amoxicillin Drug Allergy Active Rash 2012-08-21 00:00:00 [facility] Social History Social Habit Start Date Stop Date Quantity Comments Source History SDOH Alcohol Std Drinks [facility] History SDOH Alcohol Binge [place] [facility] Exposure to SARS-CoV-2 (event) Not sure [place] [facility]ast[facility] Sex Assigned At [facility] History SDOH Alcohol Frequency 2019-12-07 00:00:00 2019-12-07 00:00:0 0 1 [place] [facility] Tobacco use and exposure 2019-11-05 00:00:00 2019-11-05 00:00:00 Tommye r used [facility] Alcohol intake 2019-11-05 00:00:00 2019-11-05 00:00:00 Current non-drinker of alcohol (finding) [facility] Esper[place]ae r Smoking Status Start Date Stop Date Source Never smoker [facility] Medications Ordered Medication Name Filled Medication Name Start Date Stop Da te Current Medication? Ordering Clinician Indication Dosage Frequency Signature (SIG) Comments Components Source methylPREDNISolone (MEDROL DOSEPAK) 4 mg tablet 2019-12-25 00:00:00 2019-12-30 23:59:00 No follow package directions Cody Teague acetaminophen-codeine (TYLENOL WITH CODEINE #3) 300-30 mg pe r tablet 2019-12-25 00:00:00 2019-12-30 23:59:00 No acute pain 1{tbl} Q6H Take 1-2 tablets by mouth every 6 (six) hours as needed for severe pain for up to 5 days .acute pain. Cody Teague nitrofurantoin, macrocrystal-monohydrate, (MACROBID) 100 MG capsule 2019-12-08 00:00:00 2019-12-15 23:59:00 No 100mg Q.5D Take 1 capsule (100 mg total) by mouth 2 (two) times a day for 7 days. Clyde Teague Cyclobenzaprine Hcl Cyclobenzaprine Hcl 2019-11-28 13:50:00 Yes 10 Three Times A Day as needed for Muscle Spasms [facility] Tramadol Hcl (Ultram) 50 Mg TABLET Tramadol Hcl (Ultram) 50 Mg TABLET 2019-11-28 13:48:00 Yes 50 Every 6 Hours as needed for A llergy [facility] baclofen (LIORESAL) 10 MG tablet 2019-11-05 00:00:00 2019-10 23:59:00 No 10mg [id number] Take 1 tablet (10 mg total) by mouth 3 (three) times daily for 10 days. [facility] ketorolac (TORADOL) 10 mg tablet 2019-11-05 00:00:00 2019-10 23:59:00 No 10mg Take 1 tablet (10 mg total) by mouth every 6 (six) hours as needed for Pain for up to [address] [facility] [place] Famotidine Famotidine 2019-10-30 23:22:00 Yes 40 Daily for Acid Reflux [facility] [place] Dicyclomine Hcl Dicyclomine Hcl 2019-10-30 23:21:00 Yes 1 Four Times Daily as needed for Abdominal Pain Or Cramping [facility] Ondansetron (Ondansetron Odt) 8 Mg TAB.RAPDIS Ondanset javon (Ondansetron Odt) 8 Mg TAB.RAPDIS 2019-10-30 23:20:00 Yes 4 E very 6 Hours as needed for Nausea [facility] Vital Signs Vital Name Observation Time Observation Value Comments Source Systolic blood pressure 2019-12-25 00:24:00 138 mm[Hg] [facility] Diastolic blood pressure 2019-12-25 00:24:00 86 mm[Hg] [facility] Heart rate 2019-12-25 00:24:00 87 /min [facility] Body temperature 2019-12-25 00:24:00 36.5 Angelina Hous z[facility] Respiratory rate 2019-12-25 00:24:00 16 /min [place] [facility] Oxygen saturation in Arterial blood by Pulse oximetry 2019-02 00:24:00 100 /min [facility] Body height 2019-12-07 21:59:00 157.5 cm [facility] Body weight 2019-12-07 21:59:00 112.946 kg [facility] BMI 2019-12-07 21:59:00 45.54 kg/m2 [facility] Body Temperature 2019-11-28 14:19:00 99.4 [degF] [facility] Weight 2019-11-28 12:52:00 250 [lb_av] [facility] BMI (Body Mass Index) 2019-11-28 12:52:00 45.7 kg/m2 [facility] Body Temperature 2019-11-21 08:41:00 98.3 [degF] [facility] BMI (Body Mass Index) 2019-11-18 01:07:00 46.3 kg/m2 [facility] Weight 2019-11-17 22:40:00 253 [lb_av] [facility] Systolic blood pressure 2019-11-05 12:45:00 133 mm[Hg] [facility] Diastolic blood pressure 2019-11-05 12:45:00 85 mm[Hg] [facility] Heart rate 2019-11-05 12:45:00 81 /min [facility] Body temperature 2019-11-05 12:45:00 36.78 Angelina [facility] Respiratory rate 2019-11-05 12:45:00 16 /min [facility] Oxygen saturation in Arterial blood by Pulse oximetry 11-04 12:45:00 99 /min [facility] Body height 2019-11-05 07:20:00 157.5 cm [facility] Body weight 2019-11-05 07:20:00 104.327 kg [facility] BMI 2019-11-05 07:20:00 42.07 kg/m2 [facility] Weight 2019-10-30 20:49:00 228 [lb_av] [facility] BMI (Body Mass Index) 2019-10-30 20:49:00 41.7 kg/m2 [facility] Procedures Procedure Date / Time Performed Performing Clinician [facility] e URINE CULTURE 2019-12-24 23:31:00 Louisa Garner [facility] URINALYSIS SCREEN AND MICROSCOPY, WITH REFLEX TO CULTURE 23:30:00 Louisa Garner HCG QUALITATIVE, URINE SCREEN 2019-12-24 23:30:00 Darshan Garner URINE CULTURE 2019-12-08 00:57:00 Krish Salinas URINALYSIS SCREEN AND MICROSCOPY, WITH REFLEX TO CULTURE 00:33:00 Krish Salinas XR KNEE 3 VW BILATERAL 2019-12-08 00:26:17 Krish Salinas COMPREHENSIVE METABOLIC PANEL 2019-12-07 22:05:00 Krish Salinas HC COMPLETE BLD COUNT W/AUTO DIFF 2019-12-07 22:05:00 Janeth Salinas HCG QUALITATIVE, SERUM SCREEN 2019-12-07 22:05:00 Krish Salinas ESTIMATED GFR 2019-12-07 22:05:00 Krish Salinas MRI joint extremity lower w contrast 2019-11-19 00:00:00 [facility] MRI jnt of lwr extre w/o dye 2019-11-18 00:00:00 [facility] C-REACTIVE PROTEIN 2019-11-05 11:47:00 Glynn Harmeet Messina [facility] COMPREHENSIVE METABOLIC PANEL 2019-11-05 09:46:00 Harmeet Maki Yamilka tello [facility] CBC W/PLT COUNT & AUTO DIFFERENTIAL 2019-11-05 09:46:00 GlynnKayode [facility] XR SPINE LUMBAR COMPLETE MIN 4 VIEWS 2019-11-05 09:32:00 Glynn, Jackie rome [facility] XR SPINE THORACIC 2 VIEWS 2019-11-05 09:31:00 Glynn Harmeet payan [facility] XR HIP 2 VIEWS LEFT 2019-11-05 09:20:00 Glynn [facility] XR CHEST 2 VIEWS 2019-11-05 09:10:00 Glynn [facility] SCREEN, URINE 2019-11-05 08:00:00 Harmeet Maki [facility] URINALYSIS W/ REFLEX URINE CULTURE 2019-11-05 08:00:00 Doug Maki aebianca [facility] Plan of Care Planned Activity Planned Date Details Comments Source Future Scheduled Test 2019-10-26 00:00:00 INFLUENZA VACCINE (#1) [code = INFLUENZA VACCINE (#1)] [facility] Future Scheduled Test 2019-09-25 00:00:00 INFLUENZA VACCINE [code = INFLUENZA VACCINE] Cody Teague Future Scheduled Test 2009 00:00:00 Screening for prema gnant neoplasm of cervix (procedure) [code = 797897410] Cody Wayneis t Future Scheduled Test 2009 00:00:00 Screening for prema gnant neoplasm of cervix (procedure) [code = 495445695] [facility] Future Scheduled Test 2008 00:00:00 Lipid panel (proce dure) [code = 67154486] [facility] r Instructions [employer] [facility] Encounters Start Date/Time End Date/Time Encounter Type Admission Type [facility] Care Department Encounter ID Source 2019-12-24 00:00:00 2019-12-25 00:00:00 Emergency PORFIRIO BERMUDEZ [facility] [id number] [facility] 2019-12-07 00:00:00 2019-12-08 00:00:00 Emergency SARA ALLISON [id number] [facility] 2019-11-28 13:09:00 2019-11-28 14:08:00 Departed Emergency Room [facility] [id number] [facility] [place] 2019-11-17 20:01:00 2019-11-21 11:16:00 Discharged Inpatient 1 EVAN BEAR [facility] [id number] [facility] 2019-10-30 20:13:00 2019-10-30 23:51:00 Departed Emergency Room 1 KECIA MARTINEZ [facility] [id number] [facility] Results Test Description Test Time Test Comments Results Result Comments Source Urine culture 2019-12-24 23:55:16 Test Item Urine culture (test code = 1115834) SEE COMMENT Bacteriuria screen negative. [place] MethodistUrinalysis screen and microscopy, with reflex to culture 2019-12-24 23:55:16* Test Item Value Reference Range Interpretation Comments Specimen site (test code = 3019739) Clean catch Color, UA (test code = 5778-6) Yellow Appearance, UA (test code = 5767-9) Clear Specific gravity, UA (test code = 5811-5) 1.029 1.001-1.030 pH, UA (test code = 5803-2) 5.0 5.0-9.0 Protein, UA (test code = 12677-3) Negative Negative Glucose, UA (test code = 79557-9) Negative Negative Ketones, UA (test code = 2514-8) Negative Negative Bilirubin, UA (test code = 5770-3) Negative Negative Blood, UA (test code = 5794-3) Moderate Negative A Nitrite, UA (test code = 5802-4) Negative Negative Urobilinogen, UA (test code = 32435-9) <2.0 <2.0 E.U./dL Leukocyte esterase, UA (test code = 5799-2) Negative Negative Epithelial cells, UA (test code = 5787-7) 1 /HPF WBC, UA (test code = 5821-4) 1 0- 4 /HPF RBC, UA (test code = 02627-4) 5 0- 5 /HPF Bacteria, UA (test code = 53017-5) None seen None seen Yeast, UA (test code = 58541-4) None seen Yeast with pseudohyphae, UA (test code = 70917-9) None seen Lab Interpretation (test code = 10525-4) Abnormal [facility] MethodistG qualitative, urine [id number] 23:47:56* Test Item Value Reference Range Interpretation Comments hCG qualitative, urine (test code = 2106-3) Negative Sensitivity of HCG test: 25 mIU/ml [place] MethodistXR Knee 3 Vw Sredneced9737-74-90 00:37:11Hm Interface, Radiology Results 12/08/2019 12:40 AM CDTEXAMINATION: XR KNEE 3 VW BILATERALCLINICAL HISTORY: painCOMPARISON: None.IMPRESSION:Radiographs of the bilateral knees demonstrate no acute fracture or dislocation. The joint spaces and alignment of both knees are maintained. No significant joint effusion is seen bilaterally. No significant soft tissue abnormality is identified. [facility]-[id number] MethodistComprehensive metabolic [id number] 22:38:22 * Test Item Value Reference Range Interpretation Comments Sodium (test code = 2951-2) 136 135- 148 mEq/L Potassium (test code = 2823-3) 3.9 3.5- 5.0 mEq/L Chloride (test code = 2075-0) 100 98- 112 mEq/L CO2 (test code = 2027-9) 25 24- 31 mEq/L Anion gap (test code = 92197-2) 11@ANIO 7- 15 mEq/L BUN (test code = 3094-0) 12 mg/dL 6-20 Creatinine (test code = 2160-0) 0.64 mg/dL 0.5-0.9 Glucose (test code = 2345-7) 111 mg/dL 65-99 H Calcium (test code = 83140-5) 9.9 mg/dL 8.3-10.2 Protein (test code = 2885-2) 8.0 g/dL 6.3-8.3 Albumin (test code = 1751-7) 3.5 g/dL 3.5-5 A/G ratio (test code = 1759-0) 0.8 0.7-3.8 Alkaline phosphatase (test code = 6768-6) 89 U/L 35-104 AST (test code = 1920-8) 12 U/L 10-35 ALT (test code = 1742-6) 8 U/L 5-50 Total bilirubin (test code = 1974-2) <0.2 0.2-1.2 Lab Interpretation (test code = 02758-5) Abnormal [place] MethodistEstimated [id number] 22:38:20* Test Item Value Reference Range Interpretation Comments Estimated GFR (test code = 5488) >=90 mL/min/1.73 m2 Catergory Units InterpretationG1 >=90 Normal or highG2 60-89 Mildly krpxzjfqnL9e 45-59 Mildly to moderately zrnjqzkdyF8k 30-44 Moderately to severely decreasedG4 15-29 Severely decreasedG5 <15 Kidney failureThe eGFR was calculated using the Chronic Kidney Disease Epidemiology Collaboration (CKD-EPI) equation. Interpretation is based on recommendations of the National Kidney Foundation-Kidney Disease Outcomes Quality Initiative (NKF-KDOQI) published in 2014. [facility] MethodisthCG qualitative, serum dfjfnp0698-53-33 22:37:22* Test Item Value Reference Range Interpretation Comments hCG qualitative, serum (test code = 2118-8) Negative Sensitivity of HCG test: 25 mIU/mL [place] MethodistCBC with platelet and nrlesgqstial4485-52-73 22:21:00* Test Item Value Reference Range Interpretation Comments WBC (test code = 42423-4) 10.4 4.5- 11.0 k/uL RBC (test code = 69474-5) 3.69 m/uL 4.2-5.5 L HGB (test code = 718-7) 10.6 g/dL 12-16 L HCT (test code = 4544-3) 32.0 % 37-47 L MCV (test code = 787-2) 86.7 fL 82-100 MCH (test code = 785-6) 28.7 pg 27-34 MCHC (test code = 786-4) 33.1 g/dL 31-37 RDW - SD (test code = 77803-9) 38.8 fL 37-55 MPV (test code = 47060-1) 10.2 fL 6.9-11 Platelet count (test code = 31598-9) 388 K/uL 150-400 Nucleated RBC (test code = 67434-3) 0.00 /100 WBC Neutrophils (test code = 15687-9) 63.7 % 39-69 Lymphocytes (test code = 96448-8) 23.2 % 25-45 L Monocytes (test code = 39636-7) 12.2 % 0-10 H Eosinophils (test code = 99618-2) 0.2 % 0-5 Basophils (test code = 23531-2) 0.3 % 0-1 Immature granulocytes (test code = 70959-5) 0.4 % 0-1 Lab Interpretation (test code = 60785-9) Abnormal [place] MethodistBlmin[facility] leukocytes automated count (number/volume)2019-11-20 10:50:00* Test Item Value Reference Range Interpretation Comments White Blood Count (test code = 6690-2) 8.11 4.8-10.8 [facility] erythrocytes automated count (number/volume)2019-11-20 10:50:00* Test Item Value Reference Range Interpretation Comments Red Blood Count (test code = 789-8) 3.77 3.6-5.1 [facility] measurement (moles/volume)2019-11-20 10:50:00* Test Item Value Reference Range Interpretation Comments Hemoglobin (test code = 19438-7) 10.6 12.0-16.0 [facility] HospitalAutomated blood hematocrit (volume fraction)2019-11-20 10:50:00* Test Item Value Reference Range Interpretation Comments Hematocrit (test code = 4544-3) 32.3 34.2-44.1 [facility] HospitalAutomated erythrocyte mean corpuscular qhprua1572-67-80 10:50:00* Test Item Value Reference Range Interpretation Comments Mean Corpuscular Volume (test code = 787-2) 85.7 81-99 [facility] HospitalAutomated erythrocyte mean corpuscular hemoglobin (mass per erythrocyte)2019-11-20 10:50:00* Test Item Value Reference Range Interpretation Comments Mean Corpuscular Hemoglobin (test code = 785-6) 28.1 28-32 [facility] HospitalAutomated erythrocyte mean corpuscular hemoglobin concentration measurement (mass/volume)2019-11-20 10:50:00* Test Item Value Reference Range Interpretation Comments Mean Corpuscular Hemoglobin Concent (test code = 786-4) 32.8 31-35 [facility] HospitalRDW GvnKz-Jac7829-35-26 10:50:00* Test Item Value Reference Range Interpretation Comments Red Cell Distribution Width (test code = 69077-6) 12.4 11.7 -14.4 [facility] HospitalAutomated blood platelet count (count/volume)2019-11-20 10:50:00* Test Item Value Reference Range Interpretation Comments Platelet Count (test code = 777-3) 441 140-360 [facility] HospitalAutomated blood segmented neutrophil count as percentage of total evcmaoijvw2204-60-75 10:50:00* Test Item Value Reference Range Interpretation Comments Neutrophils (%) (Auto) (test code = 68994-7) 75.3 38.7-80.0 [facility] HospitalAutomated blood lymphocyte count as percentage ot total wkydfxykid2334-60-95 10:50:00* Test Item Value Reference Range Interpretation Comments Lymphocytes (%) (Auto) (test code = 736-9) 15.8 18.0-39.1 [facility] HospitalAutomated blood monocyte count as percentage of total gvewungyrv2086-01-69 10:50:00* Test Item Value Reference Range Interpretation Comments Monocytes (%) (Auto) (test code = 5905-5) 8.4 4.4-11.3 [facility] HospitalAutomated blood eosinophil count as percentage of total rdzohzrbua3148-86-36 10:50:00* Test Item Value Reference Range Interpretation Comments Eosinophils (%) (Auto) (test code = 713-8) 0.0 0.0-6.0 [facility] HospitalAutomated blood basophil count as percentage of total ovomwvdhsv3257-99-39 10:50:00* Test Item Value Reference Range Interpretation Comments Basophils (%) (Auto) (test code = 706-2) 0.1 0.0-1.0 [facility] HospitalFluoroscopic procedure less than one hour gduugtgx0909-44-07 10:50:00* Test Item Value Reference Range Interpretation Comments IM GRANULOCYTES % (test code = IM GRANULOCYTES %) 0.4 0.0- 1.0 [facility] HospitalAutomated blood neutrophil count 2019-11-20 10:50:00* Test Item Value Reference Range Interpretation Comments Neutrophils # (Auto) (test code = 751-8) 6.1 2.1-6.9 [facility]Blood lymphocytes count (number/volume) 2019-11-20 10:50:00* Test Item Value Reference Range Interpretation Comments Lymphocytes # (Auto) (test code = 96513-2) 1.3 1.0-3.2 [facility] HospitalBlood monocytes automated count (number/volume)2019-11-20 10:50:00* Test Item Value Reference Range Interpretation Comments Monocytes # (Auto) (test code = 742-7) 0.7 0.2-0.8 [facility] HospitalAutomated blood eosinophil count 2019-11-20 10:50:00* Test Item Value Reference Range Interpretation Comments Eosinophils # (Auto) (test code = 711-2) 0.0 0.0-0.4 [facility] HospitalAutomated blood basophil count (count/volume)2019-11-20 10:50:00* Test Item Value Reference Range Interpretation Comments Basophils # (Auto) (test code = 704-7) 0.0 0.0-0.1 [facility] HospitalFluoroscopic procedure less than one hour vqgcsyyc1579-31-45 10:50:00* Test Item Value Reference Range Interpretation Comments Absolute Immature Granulocyte (auto (ana maria t code = Absolute Immature Granulocyte (auto) 0.03 0-0.1 [facility] HospitalErythrocyte sedimentation rate by Westergren jyvcib8979-25-89 10:50:00* Test Item Value Reference Range Interpretation Comments Erythrocyte Sedimentation Rate (test code = 4537-7) 97 0- 20 [facility] sodium measurement (moles/volume)2019-11-20 10:50:00* Test Item Value Reference Range Interpretation Comments Sodium Level (test code = 2951-2) 138 136-145 [facility]wood[facility] plasma potassium measurement (moles/volume)2019-11-20 10:50:00* Test Item Value Reference Range Interpretation Comments Potassium Level (test code = 2823-3) 4.0 3.5-5.1 [facility]wood[facility] or plasma chloride measurement (moles/volume)2019-11-20 10:50:00* Test Item Value Reference Range Interpretation Comments Chloride Level (test code = 2075-0) 103 98-107 [facility]wood[facility] or plasma carbon dioxide, total measurement (moles/volume)2019-11-20 10:50:00* Test Item Value Reference Range Interpretation Comments Carbon Dioxide Level (test code = 2028-9) 25 22-29 [facility]wood[facility] or plasma anion bhu6661-71-80 10:50:00* Test Item Value Reference Range Interpretation Comments Anion Gap (test code = 35291-0) 14.0 8-16 [facility]wood[facility] or plasma urea nitrogen measurement (mass/volume)2019-11-20 10:50:00* Test Item Value Reference Range Interpretation Comments Blood Urea Nitrogen (test code = 3094-0) 10 7-26 [facility]wood[facility] or plasma creatinine measurement (mass/volume)2019-11-20 10:50:00* Test Item Value Reference Range Interpretation Comments Creatinine (test code = 2160-0) 0.61 0.57-1.11 [facility]wood[facility] or plasma urea nitrogen/creatinine mass gmkct4164-32-96 10:50:00* Test Item Value Reference Range Interpretation Comments BUN/Creatinine Ratio (test code = 3097-3) 16 6-25 [facility] HospitalEstimated glomerular filtration rate (GFR) zkpezvwopzqcx6515-43-14 10:50:00* Test Item Value Reference Range Interpretation Comments Estimat Glomerular Filtration Rate (test code = 293408055) > 60 >60 Ranges were taken from the National Kidney Disease Education Program and the [facility] Kidney Foundation literature.Reference ranges:60 or greater: Qlbpmc42-06 ( for 3 consecutive months): Chronic kidney disease 15 or less: Kidney failureTexas Orthopedic HospitalGlucose ohycnvrndbb9666-26-90 10:50:00* Test Item Value Reference Range Interpretation Comments Glucose Level (test code = CKY7710) 100 74-118 [facility] or plasma calcium measurement (mass/volume)2019-11-20 10:50:00* Test Item Value Reference Range Interpretation Comments Calcium Level (test code = 92587-8) 9.4 8.4-10.2 [facility] or plasma uric acid measurement (mass/volume)2019-11-20 10:50:00* Test Item Value Reference Range Interpretation Comments Uric Acid (test code = 3084-1) 3.7 2.6-8.0 [facility] HospitalBlood leukocytes automated count (number/volume)2019-11-20 10:50:00* Test Item Value Reference Range Interpretation Comments White Blood Count (test code = 6690-2) 8.11 4.8-10.8 [facility] HospitalBlood erythrocytes automated count (number/volume)2019-11-20 10:50:00* Test Item Value Reference Range Interpretation Comments Red Blood Count (test code = 789-8) 3.77 3.6-5.1 [facility] HospitalBlood hemoglobin measurement (moles/volume)2019-11-20 10:50:00* Test Item Value Reference Range Interpretation Comments Hemoglobin (test code = 90563-2) 10.6 12.0-16.0 [facility] HospitalAutomated blood hematocrit (volume fraction)2019-11-20 10:50:00* Test Item Value Reference Range Interpretation Comments Hematocrit (test code = 4544-3) 32.3 34.2-44.1 [facility] HospitalAutomated erythrocyte mean corpuscular xuxmcs1956-36-39 10:50:00* Test Item Value Reference Range Interpretation Comments Mean Corpuscular Volume (test code = 787-2) 85.7 81-99 [facility] HospitalAutomated erythrocyte mean corpuscular hemoglobin (mass per erythrocyte)2019-11-20 10:50:00* Test Item Value Reference Range Interpretation Comments Mean Corpuscular Hemoglobin (test code = 785-6) 28.1 28-32 [facility] HospitalAutomated erythrocyte mean corpuscular hemoglobin concentration measurement (mass/volume)2019-11-20 10:50:00* Test Item Value Reference Range Interpretation Comments Mean Corpuscular Hemoglobin Concent (test code = 786-4) 32.8 31-35 [facility] HospitalRDW OacZc-Yrt5643-40-26 10:50:00* Test Item Value Reference Range Interpretation Comments Red Cell Distribution Width (test code = 10845-9) 12.4 11.7 -14.4 [facility] HospitalAutomated blood platelet count (count/volume)2019-11-20 10:50:00* Test Item Value Reference Range Interpretation Comments Platelet Count (test code = 777-3) 441 140-360 [facility] HospitalAutomated blood segmented neutrophil count as percentage of total wqgcsbdciu8664-60-24 10:50:00* Test Item Value Reference Range Interpretation Comments Neutrophils (%) (Auto) (test code = 71991-2) 75.3 38.7-80.0 [facility] HospitalAutomated blood lymphocyte count as percentage ot total evvowgzril8349-91-57 10:50:00* Test Item Value Reference Range Interpretation Comments Lymphocytes (%) (Auto) (test code = 736-9) 15.8 18.0-39.1 [facility] HospitalAutomated blood monocyte count as percentage of total qxxqitnazk4669-36-12 10:50:00* Test Item Value Reference Range Interpretation Comments Monocytes (%) (Auto) (test code = 5905-5) 8.4 4.4-11.3 [facility] HospitalAutomated blood eosinophil count as percentage of total rmxbqxplex3382-23-67 10:50:00* Test Item Value Reference Range Interpretation Comments Eosinophils (%) (Auto) (test code = 713-8) 0.0 0.0-6.0 [facility] HospitalAutomated blood basophil count as percentage of total nvlyzowbju2262-23-86 10:50:00* Test Item Value Reference Range Interpretation Comments Basophils (%) (Auto) (test code = 706-2) 0.1 0.0-1.0 [facility] HospitalFluoroscopic procedure less than one hour oeqxaeck2577-73-66 10:50:00* Test Item Value Reference Range Interpretation Comments IM GRANULOCYTES % (test code = IM GRANULOCYTES %) 0.4 0.0- 1.0 [facility] HospitalAutomated blood neutrophil count 2019-11-20 10:50:00* Test Item Value Reference Range Interpretation Comments Neutrophils # (Auto) (test code = 751-8) 6.1 2.1-6.9 [facility] HospitalBlood lymphocytes count (number/volume) 2019-11-20 10:50:00* Test Item Value Reference Range Interpretation Comments Lymphocytes # (Auto) (test code = 57990-8) 1.3 1.0-3.2 [facility] HospitalBlood monocytes automated count (number/volume)2019-11-20 10:50:00* Test Item Value Reference Range Interpretation Comments Monocytes # (Auto) (test code = 742-7) 0.7 0.2-0.8 [facility] HospitalAutomated blood eosinophil count 2019-11-20 10:50:00* Test Item Value Reference Range Interpretation Comments Eosinophils # (Auto) (test code = 711-2) 0.0 0.0-0.4 [facility] HospitalAutomated blood basophil count (count/volume)2019-11-20 10:50:00* Test Item Value Reference Range Interpretation Comments Basophils # (Auto) (test code = 704-7) 0.0 0.0-0.1 [facility] HospitalFluoroscopic procedure less than one hour cilqahfn8525-19-30 10:50:00* Test Item Value Reference Range Interpretation Comments Absolute Immature Granulocyte (auto (ana maria t code = Absolute Immature Granulocyte (auto) 0.03 0-0.1 [facility] HospitalErythrocyte sedimentation rate by Westergren acmoqa1509-63-43 10:50:00* Test Item Value Reference Range Interpretation Comments Erythrocyte Sedimentation Rate (test code = 4537-7) 97 0- 20 [facility] sodium measurement (moles/volume)2019-11-20 10:50:00* Test Item Value Reference Range Interpretation Comments Sodium Level (test code = 2951-2) 138 136-145 [facility]wooderum or plasma potassium measurement (moles/volume)2019-11-20 10:50:00* Test Item Value Reference Range Interpretation Comments Potassium Level (test code = 2823-3) 4.0 3.5-5.1 [facility]wood[facility] or plasma chloride measurement (moles/volume)2019-11-20 10:50:00* Test Item Value Reference Range Interpretation Comments Chloride Level (test code = 2075-0) 103 98-107 [facility]wooderum or plasma carbon dioxide, total measurement (moles/volume)2019-11-20 10:50:00* Test Item Value Reference Range Interpretation Comments Carbon Dioxide Level (test code = 2028-9) 25 22-29 [facility]wooderum or plasma anion kvo9415-08-60 10:50:00* Test Item Value Reference Range Interpretation Comments Anion Gap (test code = 43157-0) 14.0 8-16 [facility]wooder[facility] or plasma urea nitrogen measurement (mass/volume)2019-11-20 10:50:00* Test Item Value Reference Range Interpretation Comments Blood Urea Nitrogen (test code = 3094-0) 10 7-26 [facility]wood[facility] or plasma creatinine measurement (mass/volume)2019-11-20 10:50:00* Test Item Value Reference Range Interpretation Comments Creatinine (test code = 2160-0) 0.61 0.57-1.11 [facility]wooder[facility] or plasma urea nitrogen/creatinine mass cbtne7625-15-88 10:50:00* Test Item Value Reference Range Interpretation Comments BUN/Creatinine Ratio (test code = 3097-3) 16 6-25 [facility] HospitalEstimated glomerular filtration rate (GFR) srwsdacyfsjgh7605-33-55 10:50:00* Test Item Value Reference Range Interpretation Comments Estimat Glomerular Filtration Rate (test code = 107583424) > 60 >60 Ranges were taken from the National Kidney Disease Education Program and the [facility] literature.Reference ranges:60 or greater: Gbazcc42-98 ( for 3 consecutive months): Chronic kidney disease 15 or less: Kidney failureTexas Orthopedic HospitalGlucose mqrqppohcxm9264-32-78 10:50:00* Test Item Value Reference Range Interpretation Comments Glucose Level (test code = GMX8728) 100 74-118 [facility]wood[facility] or plasma calcium measurement (mass/volume)2019-11-20 10:50:00* Test Item Value Reference Range Interpretation Comments Calcium Level (test code = 61153-9) 9.4 8.4-10.2 [facility]wood[facility] or plasma uric acid measurement (mass/volume)2019-11-20 10:50:00* Test Item Value Reference Range Interpretation Comments Uric Acid (test code = 3084-1) 3.7 2.6-8.0 [facility] HospitalMRI RIGHT KNEE E1841-26-59 09:59:00 [facility] [address] [address] Patient Name: KATI COKO MR #: [id number] : 1990 Age/Sex: 29/F Req #: [id number] Adm Physician: EVAN BEAR MD Ordered by: OLIVIA WRIGHT Report #: [id number] Location: MED/SURG Room/Bed: [facility] Procedure: [id number] MRI/MRI RIGHT KNEE W Exam Date: Exam [...] on 11/19/2019 11:21 AM Dictated By: CITLALI GALDAMEZ MD Electron ically Signed By: CITLALI GALDAMEZ MD on 11/19/19 1121 Transcribed By: RIMMA on 11/19/19 1121 COPY TO: OLIVIA WRIGHT Specimen source identification of body tjvpf3462-56-51 08:11:00* Test Item Value Reference Range Interpretation Comments Body Fluid Type (test code = 92931-2) SYNOVIAL [facility] HospitalEvaluation of color of body fluid 2019-11-19 08:11:00* Test Item Value Reference Range Interpretation Comments Body Fluid Color (test code = 6824-7) YELLOW [facility] HospitalDetermination of appearance of body fluid 2019-11-19 08:11:00* Test Item Value Reference Range Interpretation Comments Body Fluid Appearance (test code = 9335-1) CLOUDY [facility] HospitalManual body fluid leukocytes count (number/volume)2019-11-19 08:11:00* Test Item Value Reference Range Interpretation Comments Body Fluid WBC (test code = 6743-9) [address] [facility] body fluid erythrocytes count (number/volume)2019-11-19 08:11:00* Test Item Value Reference Range Interpretation Comments Body Fluid RBC (test code = 6741-3) 165 [facility] body fluid neutrophils/100 whhvehzgqx4414-00-51 08:11:00* Test Item Value Reference Range Interpretation Comments Body Fluid Neutrophils (test code = 91536-3) 67 [facility] HospitalBody fluid lymphocyte iyiiu6921-18-29 08:11:00* Test Item Value Reference Range Interpretation Comments Body Fluid Lymphocytes (test code = 92872485) 20 [facility] HospitalBody fluid monocyte kgoca3208-63-06 08:11:00* Test Item Value Reference Range Interpretation Comments Body Fluid Monocytes (test code = 80368-6) 13 [facility] HospitalTotal cell ehxsp4493-54-33 08:11:00* Test Item Value Reference Range Interpretation Comments Body Fluid Total Cells Counted (test code = 72638-9) 100 [facility] Kingwoodpecimen source identification of body ufhdd4804-98-88 08:11:00* Test Item Value Reference Range Interpretation Comments Body Fluid Type (test code = 65706-9) SYNOVIAL [facility] HospitalEvaluation of color of body fluid 2019-11-19 08:11:00* Test Item Value Reference Range Interpretation Comments Body Fluid Color (test code = 6824-7) YELLOW [facility] HospitalDetermination of appearance of body fluid 2019-11-19 08:11:00* Test Item Value Reference Range Interpretation Comments Body Fluid Appearance (test code = 9335-1) CLOUDY [facility] body fluid leukocytes count (number/volume)2019-11-19 08:11:00* Test Item Value Reference Range Interpretation Comments Body Fluid WBC (test code = 6743-9) [address] [facility] body fluid erythrocytes count (number/volume)2019-11-19 08:11:00* Test Item Value Reference Range Interpretation Comments Body Fluid RBC (test code = 6741-3) 165 [facility] HospitalManual body fluid neutrophils/100 pdyzkpaqiu4557-35-72 08:11:00* Test Item Value Reference Range Interpretation Comments Body Fluid Neutrophils (test code = 08682-6) 67 [facility] HospitalBody fluid lymphocyte lyntq1460-75-68 08:11:00* Test Item Value Reference Range Interpretation Comments Body Fluid Lymphocytes (test code = 72685945) 20 [facility] HospitalBody fluid monocyte uqvhq3155-22-45 08:11:00* Test Item Value Reference Range Interpretation Comments Body Fluid Monocytes (test code = 10121-5) 13 [facility] HospitalTotal cell lqdjy1273-91-03 08:11:00* Test Item Value Reference Range Interpretation Comments Body Fluid Total Cells Counted (test code = 98607-5) 100 [facility] HospitalMRI RIGHT KNEE YY5755-51-71 15:35:00 [facility] [address] [address] Patient Name: KATI COOK MR #: [id number] : 1990 Age/Sex: 29/F Req #: [id number] Adm Physician: EVAN BEAR MD Ordered by: EVAN BEAR MD Report #: [id number] Location: MED/SURG Room/Bed: [facility] Procedure: [id number] MRI/MRI RIG HT KNEE WO Exam Date: [...] TO: EVAN BEAR MD MRI KNEE LEFT LW8150-86-32 15:07:[address] [address] Patient Name: KATI COOK MR #: [id number] : 1990 Age/Sex: 29/F Req #: [id number] Adm Physician: EVAN BEAR MD Ordered by: EVAN BEAR MD Report #: [id number] Location: MED/SURG Room/Bed: [facility] Procedure: [id number] MRI/MRI KNE E LEFT WO Exam Date: [...] Bilirubin (test code = 1975-2) 0.2 0.2-1.2 [facility] HospitalFluoroscopic procedure less than one hour nivyvrel3372-20-37 05:00:00* Test Item Value Reference Range Interpretation Comments Aspartate Amino Transf (AST/SGOT) (test code = Aspartate Amino Transf (AST/SGOT)) 9 5-34 [facility]wooderum or plasma alanine aminotransferase measurement (enzymatic activity/volume)2019-11-18 05:00:00* Test Item Value Reference Range Interpretation Comments Alanine Aminotransferase (ALT/SGPT) (test code = 1742-6) 6 0-55 [facility]wooderum or plasma protein measurement (mass/volume)2019-11-18 05:00:00* Test Item Value Reference Range Interpretation Comments Total Protein (test code = 2885-2) 6.8 6.5-8.1 [facility]wooder[facility] or plasma albumin measurement (mass/volume)2019-11-18 05:00:00* Test Item Value Reference Range Interpretation Comments Albumin (test code = 1751-7) 3.5 3.5-5.0 [facility] HospitalPlasma globulin measurement (mass/volume) 2019-11-18 05:00:00* Test Item Value Reference Range Interpretation Comments Globulin (test code = 28701-7) 3.3 2.3-3.5 [facility]wooder[facility] or plasma albumin/globulin mass zcaki2449-85-76 05:00:00* Test Item Value Reference Range Interpretation Comments Albumin/Globulin Ratio (test code = 1759-0) 1.1 0.8-2.0 [facility]wood[facility] or plasma alkaline phosphatase measurement (enzymatic activity/volume)2019-11-18 05:00:00* Test Item Value Reference Range Interpretation Comments Alkaline Phosphatase (test code = 6768-6) 73 40-150 [facility]wooder[facility] or plasma total bilirubin measurement (mass/volume)2019-11-18 05:00:00* Test Item Value Reference Range Interpretation Comments Total Bilirubin (test code = 1975-2) 0.2 0.2-1.2 [facility] HospitalFluoroscopic procedure less than one hour zjdpjfig5317-84-59 05:00:00* Test Item Value Reference Range Interpretation Comments Aspartate Amino Transf (AST/SGOT) (test code = Aspartate Amino Transf (AST/SGOT)) 9 5-34 [facility]wood[facility] or plasma alanine aminotransferase measurement (enzymatic activity/volume)2019-11-18 05:00:00* Test Item Value Reference Range Interpretation Comments Alanine Aminotransferase (ALT/SGPT) (test code = 1742-6) 6 0-55 [facility] or plasma protein measurement (mass/volume)2019-11-18 05:00:00* Test Item Value Reference Range Interpretation Comments Total Protein (test code = 2885-2) 6.8 6.5-8.1 [facility] or plasma albumin measurement (mass/volume)2019-11-18 05:00:00* Test Item Value Reference Range Interpretation Comments Albumin (test code = 1751-7) 3.5 3.5-5.0 [facility] HospitalPlasma globulin measurement (mass/volume) 2019-11-18 05:00:00* Test Item Value Reference Range Interpretation Comments Globulin (test code = 94259-4) 3.3 2.3-3.5 [facility]wood[facility] or plasma albumin/globulin mass upylr1083-38-16 05:00:00* Test Item Value Reference Range Interpretation Comments Albumin/Globulin Ratio (test code = 1759-0) 1.1 0.8-2.0 [facility] or plasma alkaline phosphatase measurement (enzymatic activity/volume)2019-11-18 05:00:00* Test Item Value Reference Range Interpretation Comments Alkaline Phosphatase (test code = 6768-6) 73 40-150 [facility] HospitalFluoroscopic procedure less than one hour aauanyoa0215-71-78 20:54:00* Test Item Value Reference Range Interpretation Comments Coronavirus (PCR) (test code = Coronavirus (PCR)) NOT DETECTED NOTD ETECTED SARS-CoV-2 PCRHologic Aptima SARS-CoV-2 assay is a nucleic amplification test in tended for the qualitative detection of RNA from SARS-CoV-2 from nasopharyngeal (SENIOR TECHNICAL ARCHITECT) specimens. It is used under Emergency Use [...] repr at testing oc clinically indicated.Tesing performed by:[facility] Laboratory Services[address] [place] [address] [id number], Harmeet keyes MD, PhDTexas Orthopedic HospitalFluoroscopic procedure less than one hour tiszngdd7012-25-92 20:54:00* Test Item Value Reference Range Interpretation Comments Coronavirus (PCR) (test code = Coronavirus (PCR)) NOT DETECTED NOTD ETECTED SARS-CoV-2 PCRHologic Aptima SARS-CoV-2 assay is a nucleic amplification test in tended for the qualitative detection of RNA from SARS-CoV-2 from nasopharyngeal (SENIOR TECHNICAL ARCHITECT) specimens. It is used under Emergency Use [...] repr at testing oc clinically indicated.Tesing performed by:[facility] Laboratory Services[address] [place] [address] [id number], Harmeet keyes MD, PhDCedar Park Regional Medical Center EXREMEITY VEINS UNI-HOPD 2019-11-17 18:28:[address] [address] Patient Name: KATI COOK MR #: [id number] : 1990 Age/Sex: 29/F Req #: [id number] Adm Physician: Ordered by: MAGDA ALEXANDER MD Report #: [id number] Location: FS Room/Bed: Procedure: HOPD/U S EXREMEITY VEINS UNI-HOPD [...] TO: MAGDA ALEXANDER MD CT ABD/PEL WO XYQNDENE-RURV7853-11-23 16:55:[address] [address] Patient Name: KATI COOK MR #: [id number] : 1990 Age/Sex: 29/F Req #: [id number] Adm Physician: Ordered by: MAGDA ALEXANDER MD Report #: [id number] Location: [facility] Room/Bed: Procedure: [id number] HOPD/C T ABD/PEL WO CONTRAST-HOPD Exam Date: [...] 11/17/191658 COPY TO: MAGDA ALEXANDER MD C-Reactive Muxnulb0733-92-78 12:23:00* Test Item Value Reference Range Interpretation Comments CRP (test code = 676) 4.90 mg/dL 0-0.5 H JOSUE (test code = JOSUE) Car Filler ID - BROOK [place] Lab Interpretation (test code = 32363-4) Abnormal [facility] DistrictC-REACTIVE [id number] 12:23:00* Test Item Value Reference Range Interpretation Comments C-REACTIVE PROTEIN (BEAKER) (test code = 676) 4.90 mg/dL 0.00-0.5 0 H Car Filler ID - [place] FCBC with platelet count + automated msuw2771-75-84 10:39:00* Test Item Value Reference Range Interpretation [...] 450 K/CU MM MPV (test code = 08997-2) 11.7 fL 9.4-12.3 nRBC (test code = [...] % 0-1 Lab Interpretation (test code = 84922-4) Abnormal [facility] DistrictCBC W/PLT COUNT & AUTO BPBMKKVNVCAH1458-08-56 10:39:00* Test Item Value Reference Range Interpretation [...] = 2801) 0 % 0-1 Comprehensive metabolic anlbm9703-46-76 10:27:00* Test Item Value Reference Range Interpretation Comments Protein, Total (test code = 2885-2) 8.0 6.0- 8.3 gm/dL Specimen moderately hemolyzed Albumin (test code = 03310-8) 4.0 g/dL 3.5-5 Specimen moderately hemolyzed Alkaline Phosphatase (test code = 6768-6) 79 U/L 40-150 Total Bilirubin (test code = 1975-2) 0.5 mg/dL 0.2-1.2 Specimen moderately hemolyzed Sodium (test code = 2951-2) 137 meq/L 136-145 Potassium (test code = 2823-3) 5.1 meq/L 3.5-5.1 Specimen moderately hemolyzed Chloride (test code = 5-0) 106 meq/L 98-107 CO2 (test code = 2027-9) 23 meq/L 22-29 BUN (test code = 3094-0) 5 mg/dL 7-21 L Creatinine (test code = 2160-0) 0.67 mg/dL 0.57-1.25 Specimen moderately hemolyzed Glucose (test code = 2345-7) 99 mg/dL 70-105 Calcium (test code = 14575-8) 9.1 mg/dL 8.4-10.2 AST (test code = 1920-8) 19 U/L 5-34 Spe cimen moderately hemolyzed ALT (test code = 1742-6) 11 U/L 6-55 Spe cimen moderately hemolyzed EGFR (test code = 10132-4) 124 mL/min/1.73 sq m ESTIMATED GFR IS NOT ACCURATE CREATININE CLEARANCE IN PREDICTING GLOMERULAR FILTRATION RATE. ESTIMATED GFR IS NOT APPLICABLE FOR DIALYSIS PATIENTS. JOSUE (test code = JOSUE) Car Filler ID - BROOK [place] Lab Interpretation (test code = 93435-4) Abnormal [facility] DistrictCOMPREHENSIVE METABOLIC ORRXR7254-36-51 10:27:00* Test Item Value Reference Range Interpretation [...] GFR IS NOT APPLICABLE FOR DIALYSIS PATIENTS. Car Filler ID - BROOK REEVESD, SPINE, LUMBAR, COMPLETE (MIN 4 VIEWS)2019-11-05 09:34:00Reason for exam:->BACK PAINFINAL REPORT RAD, SPINE, LUMBAR, COMPLETE (MIN 4 VIEWS), RAD, SPINE, THORACIC, 2 VIEWS INDICATION: BACK PAIN COMPARISON: None TECHNIQUE: AP and lateral radiographs of the thoracic and lumbar spine FINDINGS/IMPRESSION:No acute fracture or malalignment Signed: Rani Merrill Verified Date/Time: 11/05/2019 09:34:35 Reading Location: [facility] Radiology Reading Room , SPINE, THORACIC, 2 VIEWS 2019-11-05 09:34:00Reason for exam:->BACK PAINFINAL REPORT RAD, SPINE, LUMBAR, COMPLETE (MIN 4 VIEWS), RAD, SPINE, THORACIC, 2 VIEWS INDICATION: BACK PAIN COMPARISON: None TECHNIQUE: AP and lateral radiographs of the thoracic and lumbar spine FINDINGS/IMPRESSION:No acute fracture or malalignment Signed: Rani Merrill Verified Date/Time: 11/05/2019 09:34:35 Reading Location: [facility] Radiology Reading Room spine lumbar complete 4 views [id number] 09:34:00Interface, External Ris In - 11/05/2019 9:36 AM CDTFINAL REPORT RAD, SPINE, LUMBAR, COMPLETE (MIN 4 VIEWS), RAD, SPINE, THORACIC, 2 VIEWS INDICATION: BACK PAIN COMPARISON: None TECHNIQUE: AP and lateral radiographs of the thoracic and lumbar spine FINDINGS/IMPRESSION:No acute fracture or malalignment Signed: Rani Merrill Verified Date/Time: 11/05/2019 09:34:35 Reading Location: [facility] Radiology Reading [facility] 2 uvfbg6327-01-19 09:34:00Interface, External Ris In - 11/05/2019 9:36 AM CDTFINAL REPORT RAD, SPINE, LUMBAR, COMPLETE (MIN 4 VIEWS), RAD, SPINE, THORACIC, 2 VIEWS INDICATION: BACK PAIN COMPARISON: None TECHNIQUE: AP and lateral radiographs of the thoracic and lumbar spine FINDINGS/IMPRESSION:No acute fracture or malalignment Signed: Rani Merrill Verified Date/Time: 11/05/2019 09:34:35 Reading Location: [facility] Radiology Reading Room [facility], 2-3 VIEWS, LEFT, TO INCL PELVIS WHEN EEIDRCCWC4053-43-82 09:33:00Reason for exam:->BACK PAINFINAL REPORT RAD, HIP, 2-3 VIEWS, LEFT, TO INCL PELVIS WHEN PERFORMED INDICATION: BACK PAIN COMPARISON: None TECHNIQUE: AP and lateral radiographs of the hip FINDINGS/IMPRESSION:No acute fracture or malalignment Signed: Rani Merrill Verified Date/Time: 11/05/2019 09:33:32 Reading Location: [facility] Radiology Reading Room hip 2 views [id number] 09:33:00Interface, External Ris In - 11/05/2019 9:35 AM CDTFINAL REPORT RAD, HIP, 2-3 VIEWS, LEFT, TO INCL PELVIS WHEN PERFORMED INDICATION: BACK PAIN COMPARISON: None TECHNIQUE: AP and lateral radiographs of the hip FINDINGS/IMPRESSION:No acute fracture or malalignment Signed: Rani Merrill Verified Date/Time: 11/05/2019 09:33:32 Reading Location: [facility] Radiology Reading [facility] CHEST, 2 [id number] 09:32:00Reason for exam:->BACK PAINFINAL REPORT INDICATION: BACK PAIN COMPARISON: None TECHNIQUE: Frontal and lateral views of the chest. FINDINGS: Lungs and pleura: Clear lungs. No effusion.Heart and mediastinum: Normal heart size. Unremarkable mediastinal contours.Osseous structures: No acute abnormality.Additional findings: None. IMPRESSION: No acute intrathoracic abnormality. Signed: Rani Merrill Verified Date/Time: 11/05/2019 09:32:46 Reading Location: [facility] dioly Reading Room chest 2 wcmkf8238-31-38 09:32:00Interface, External Ris In - 11/05/2019 9:34 AM CDTFINAL REPORT INDICATION: BACK PAIN COMPARISON: None TECHNIQUE: Frontal and lateral views of the chest. FINDINGS: Lungs and pleura: Clear lungs. No effusion.Heart and mediastinum: Normal heart size. Unremarkable mediastinal contours.Osseous structures: No acute abnormality.Additional findings: None. IMPRESSION: No acute intrathoracic abnormality. Signed: Rani Merrill KAYLYNeport Verified Date/Time: 11/05/2019 09:32:46 Reading Location: [facility] Radiology Reading Room [facility] CenterUrinalysis w/Microscopic + Reflex to Vqriquq2914-82-18 09:09:00* Test Item Value Reference Range Interpretation Comments Color, UA (test code = 5778-6) Colorless Clarity, UA (test code = 5767-9) Clear Specific [place], UA (test code = 5811-5) 1.005 1.001-1.035 pH, UA (test code = 5803-2) 7.0 5.0-8.0 Protein, UA (test code = 24811-4) Negative Negative Glucose, UA (test code = 365) Negative Negative Ketones, UA (test code = 2514-8) Negative Negative Bilirubin, UA (test code = 80282-6) Negative Negative Blood, UA (test code = 05185-6) Negative Negative Nitrite, UA (test code = 5802-4) Negative Negative Leukocytes, UA (test code = 5799-2) Negative Negative Urobilinogen, UA (test code = 99108-9) 0.2 mg/dL 0.2-1 RBC, UA (test code = 26989-2) 0 /HPF WBC, UA (test code = 5821-4) 1 /HPF Squam Epithel, UA (test code = 87091-6) <1 /HPF Specimen Source (test code = 2795) JOSUE (test code = JOSUE) Car Filler ID - [auto]Car Filler ID - tech [facility]UR[facility] REFLEX URINE ZHTODXV9511-72-01 09:09:00* Test Item Value Reference Range Interpretation [...] < /HPF SOURCE(BEAKER) (test code = 2795) Car Filler ID - [auto]Car Filler ID - techPregnancy screen, begbu4276-85-40 08:34:00 * Test Item Value Reference Range Interpretation Comments Preg Test, Ur (test code = 2112-1) Negative [facility] DistrictPREG[facility]Y SCREEN, [id number] 08:34:00* Test Item Value Reference Range Interpretation Comments TEST URINE (BEAKER) (test code = 583) Negative CT ABD/PEL WITH [id number] 23:03:00 [place] [address] Patient Name: KATI COOK MR #: [id number] : 1990 Age/Sex: 29/F Req #: [id number] Adm Physician: Ordered by: KECIA MARTINEZ MD Report #: [id number] Location: [facility] Room/Bed: Procedure: [id number] HOPD/CT ABD/PEL WITH CONTRAST-HOPD Exam Date: 10/30/19 Exam Time: 2211 REPORT STATUS: Signed EXAM: CT Abdomen and Pelvis WITH contrast INDICATION: abdominal p ain [id number] COMPARISON: None. TECHNIQUE: Abdomen and pelvis wer [...] KECIA MARTINEZ MD - XR CHEST 2 [id number] 01:03:00 FAX: Michele Paz MD [phone] [place]: St: REG Name: [facility] [place] : [birth year] Age/S: 28/F [address] [place] [address] Bl Unit #: [id number] Loc: [address] [address] Phys: Michele Paz MD Acct: [id number] Dis Date: Status: REG ER PHONE #: [phone] Exam Date: 05/12/2018 0046 FAX #: [phone] Reason: cough EXAMS: CPT CODE: [id number] XR CHEST 2 V [id number] Chest, 2 views dated 05/12/2018. HISTORY: Cough. [...] Technologist: Elisa Walsh RT(R) Trnscrd Date/Time/By: 05/13/19 (102) : By: Smith Orig Print D/T: S: 05/12/2018 (6) PAGE 1 Signed Report
--- OUTSIDE RECORDS SUMMARY | 2020-01-03 05:32 | XMS REPORT | Clinical Summary ---
Author Author [facility] Organization [place] [facility] Address Unknown Phone Unavailable Care Team Providers Care Leather Skinner Name Role Phone Nirmal Loving MD PCP Allergies Comments Active Allergy Reactions Severity Noted Date Amoxicillin Hives 12/07/2019 Medications End Date Status Medication Sig Dispensed Refills Start Date 12/15/2019 nitrofurantoin, Take 1 14 capsule 0 macrocrystal-monohydrate, capsule (100 0 (MACROBID) 100 MG capsule mg total) by mouth 2 (two) times a day for 7 days. 12/30/2019 methylPREDNISolone follow 21 tablet 0 02 (MEDROL DOSEPAK) 4 mg package 0 tablet directions 12/30/2019 acetaminophen-codeine Take 1-2 15 tablet 0 11/26 (TYLENOL WITH CODEINE #3) tablets by 0 300-30 mg per mouth every 6 tabletIndications: acute (six) hours pain as needed for severe pain for up to 5 days .acute pain. Active Problems Not on file Encounters Care Team Description Date Type Specialty Anatoly Cabrera MD Lumbar radiculopathy (Primary Dx); Hematuria, unspecified type 12/24/2019 Emergency Emergency Medicine - 12/25/2019 12/24/2019 Travel Becky Weber MD Pain in both knees, unspecified chronici ty (Primary Dx); Other microscopic hematuria 12/07/2019 Emergency Emergency Medicine - 12/08/2019 12/07/2019 Travel after 01/02/2019 Medical History Medical History Date Comments Cyst of knee joint Heart murmur Social History Date Tobacco Use Types Packs/Day Years Used Never Smoker Smokeless Tobacco: Never Used Drinks/Week oz/Week Comments Alcohol Use Never Alcohol Habits Answer Date Recorded How often do you have a drink containing alcohol? Never 12/07/2019 How many drinks containing alcohol do you have on No t asked a typical day when you are drinking? How often do you have six or more drinks on one Not asked occasion? Sex Assigned at Date Recorded Not on file Date Recorded COVID-19 Exposure Response 12/24/2019 11:25 PM CDT In the last month, have you been in contact with No / Unsure someone who was confirmed or suspected to have Coronavirus / COVID-19? Last Filed Vital Signs Reading Time Taken Comments Vital Sign 138/86 12/25/2019 12:24 AM CDT Blood Pressure 87 12/25/2019 12:24 AM CDT Pulse 36.5 C (97.7 F) 12/25/2019 12:24 AM CDT Temperature 16 12/25/2019 12:24 AM CDT Respiratory Rate 100% 12/25/2019 12:24 AM CDT Oxygen Saturation - - Inhaled Oxygen Concentration 113 kg (249 lb) 12/07/2019 9:59 PM CDT Weight 157.5 cm (5' 2") 12/07/2019 9:59 PM CDT Height 45.54 12/07/2019 9:59 PM CDT Body Mass Index Plan of Treatment Health Maintenance Due Date Last Done Comments CERVICAL CANCER SCREENING 2009 INFLUENZA VACCINE 09/25/2019 Procedures Comments Procedure Name Priority Date/Time Associated Diag nosis URINE CULTURE Routine 12/24/2019 11:31 PM CDT HCG QUALITATIVE, URINE Routine 12/24/2019 SCREEN 11:30 PM CDT URINALYSIS SCREEN AND Routine 12/24/2019 MICROSCOPY, WITH REFLEX 11:30 PM CDT TO CULTURE URINE CULTURE STAT 12/08/2019 12:57 AM CDT URINALYSIS SCREEN AND STAT 12/08/2019 MICROSCOPY, WITH REFLEX 12:33 AM CDT TO CULTURE XR KNEE 3 VW BILATERAL STAT 12/08/2019 12:26 AM CDT ESTIMATED GFR STAT 12/07/2019 10:05 PM CDT HCG QUALITATIVE, SERUM STAT 12/07/2019 SCREEN 10:05 PM CDT HC COMPLETE BLD COUNT STAT 12/07/2019 W/AUTO DIFF 10:05 PM CDT COMPREHENSIVE METABOLIC STAT 12/07/2019 PANEL 10:05 PM CDT after 01/02/2019 Results * Urine culture (12/24/2019 11:31 PM CDT) Only the most recent of 2 results within the time period is included. Urine culture SEE COMMENTComment: [facility] Bacteriuria screen negative. [facility] Specimen Performing Organization Address City/State/ZIP Code P sukh Number [facility] [place] [address] [place], [place] [address] PATHOLOGY AND GENOMIC MEDICINE [facility] [address] [place] [address] [facility] * Urinalysis screen and microscopy, with reflex to culture (12/24/2019 11:30 PM CDT) Only the most recent of 2 results within the time period is included. Specimen site Clean catch [facility] Color, UA Yellow [facility] Appearance, UA Clear [facility] Specific 1.029 1.001 - 1.030 [facility] gravity, [facility] pH, UA 5.0 5.0 - 9.0 [facility] Protein, UA Negative Negative [facility] Glucose, UA Negative Negative [facility] Ketones, UA Negative Negative [facility] Bilirubin, UA Negative Negative [facility] Blood, UA Moderate (A) Negative [facility] Nitrite, UA Negative Negative [facility] Urobilinogen, <2.0 <2.0 E.U./dL [facility] Leukocyte Negative Negative [facility] esterase, UA [facility] Epithelial 1 /HPF [facility] cells, UA [facility] WBC, UA 1 0 - 4 /HPF [facility] RBC, UA 5 0 - 5 /HPF [facility] Bacteria, UA None seen None seen [facility] Yeast, UA None seen [facility] Yeast with None seen [facility] pseudohyphaeMETHODIST [facility] Specimen Urine Performing Organization Address [facility] P sukh Number [facility] DEPARTMENT [place] [address] [place] [address] PATHOLOGY AND GENOMIC MEDICINE [address] * hCG qualitative, urine screen (12/24/2019 11:30 PM CDT) hCG NegativeComment: Sensitivity [facility] qualitative, of HCG test: 25 mIU/ml MILIND SUGA R urine [facility] Specimen Urine Performing Organization Address [facility] P sukh Number [facility] DEPARTMENT [place] [id number] [place] [address] PATHOLOGY AND GENOMIC MEDICINE [facility] [id number] [place] [address] * XR Knee 3 Vw Bilateral (12/08/2019 12:26 AM CDT) Specimen Narrative Performed At EXAMINATION: XR KNEE 3 VW BILATERAL [facility] CLINICAL HISTORY: pain COMPARISON: None. IMPRESSION: Radiographs of the bilateral knees demo nstrate no acute fracture or dislocation. The joint spaces and alignment of both knees are maintained. No significant joint effusion is seen bilaterally. No significant soft tissue abnormality is identified. [facility]-[id number] Procedure Note Hm Interface, Radiology Results Incoming - 12/08/2019 12:40 AM CDT EXAMINATION: XR KNEE 3 VW BILATERAL CLINICAL HISTORY: pain COMPARISON: None. IMPRESSION: Radiographs of the bilateral knees demonstrate no acute fracture or dislocation. The joint spaces and alignment of both knees are maintained. No significant joint effusion is seen bilaterally. No significant soft tissue abnormality is identified. [facility]-[id number] Performing Organization Address [facility] P sukh Number [facility] [address] [place] [address] * Estimated GFR (12/07/2019 10:05 PM CDT) Estimated GFR >=90 mL/min/1.73 m2 [facility] Comment: MILIND GUTIERREZ [facility] Interpretation G1 >=90 Normal or high G2 60-89 Mildly decreased G3a 45-59 Mildly to moderately decreased G3b 30-44 Moderately to severely decreased G4 15-29 Severely decreased G5 <15 Kidney failure The eGFR was calculated using the Chronic Kidney Disease Epidemiology Collaboration (CKD-EPI) equation. Interpretation is based on recommendations of the National Kidney Foundation-Kidney Disease Outcomes Quality Initiative (NKF-KDOQI) published in 2014. Specimen Performing Organization Address City/State/ZIP Code P sukh Number [facility] [id number] [place] [address] PATHOLOGY [address] * CBC with platelet and differential (12/07/2019 10:05 PM CDT) WBC 10.4 4.5 - 11.0 k/uL [facility] RBC 3.69 (L) 4.20 - 5.50 m/uL [facility] HGB 10.6 (L) 12.0 - 16.0 g/dL [facility] HCT 32.0 (L) 37.0 - 47.0 % [facility] MCV 86.7 82.0 - 100.0 fL [facility] MCH 28.7 27.0 - 34.0 pg [facility] MCHC 33.1 31.0 - 37.0 g/dL [facility] RDW - SD 38.8 37.0 - 55.0 fL [facility] MPV 10.2 6.9 - 11.0 fL [facility] Platelet count 388 150 - 400 K/uL [facility] Nucleated RBC 0.00 /100 WBC [facility] Neutrophils 63.7 39.0 - 69.0 % [facility] Lymphocytes 23.2 (L) 25.0 - 45.0 % [facility] Monocytes 12.2 (H) 0.0 - 10.0 % [facility] Eosinophils 0.2 0.0 - 5.0 % [facility] Basophils 0.3 0.0 - 1.0 % [facility] Immature 0.4 0.0 - 1.0 % [facility] granulocytes [facility] Specimen Blood Performing Organization Address City/State/ZIP Code P sukh Number [facility] [id number] [place] [address] PATHOLOGY AND GENOMIC MEDICINE [address] * hCG qualitative, serum screen (12/07/2019 10:05 PM CDT) Pathologist [facility] hCG NegativeComment: Sensitivity [facility], of HCG test: 25 mIU/mL [facility] Specimen Blood Performing Organization Address City/State/ZIP Code P sukh Number [facility] [id number] [place] [address] PATHOLOGY AND GENOMIC MEDICINE [address] * Comprehensive metabolic panel (12/07/2019 10:05 PM CDT) [facility] Sodium 136 135 - 148 mEq/L [facility] Potassium 3.9 3.5 - 5.0 mEq/L [facility] Chloride 100 98 - 112 mEq/L [facility] CO2 25 24 - 31 mEq/L [facility] Anion gap 11@ANIO 7 - 15 mEq/L [facility] BUN 12 6 - 20 mg/dL [facility] Creatinine 0.64 0.50 - 0.90 mg/dL [facility] Glucose 111 (H) 65 - 99 mg/dL [facility] Calcium 9.9 8.3 - 10.2 mg/dL [facility] Protein 8.0 6.3 - 8.3 g/dL [facility] Albumin 3.5 3.5 - 5.0 g/dL [facility] A/G ratio 0.8 0.7 - 3.8 [facility] Alkaline 89 35 - 104 U/L [facility] phosphatase [facility] AST 12 10 - 35 U/L [facility] ALT 8 5 - 50 U/L [facility] Total bilirubin <0.2 0.2 - 1.2 mg/dL [facility] Specimen Blood Performing Organization Address City/State/ZIP Code P sukh Number [facility] [address] [place] [address] PATHOLOGY AND GENOMIC MEDICINE [address] after 01/02/2019 Insurance Type Payer Benefit Subscriber ID Effective Phone Address Plan / Dates Group [facility] [id number] 2019- HEALTHCARE Present ALL OTHER Advance Directives For more information, please contact: [phone] 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
--- OUTSIDE RECORDS SUMMARY | 2020-01-03 05:32 | XMS REPORT | Clinical Summary ---
Author Author JESUSITA [facility] Address Unknown Phone Unavailable Care Team Providers Care Ror Engineer Name Role Phone Sharpless PCP Allergies Comments [...] 11/05/2019 Emergency Emergency Medicine 11/05/2019 Travel after 01/02/2019 Social History Date Tobacco Use Types Packs/Day Years Used Never Smoker Smokeless Tobacco: Never Used Drinks/Week oz/Week Comments Alcohol Use No Sex Assigned at Date Recorded Not on file Last Filed Vital Signs Reading Time Taken Comments Vital Sign 133/85 11/05/2019 12:45 PM CDT Blood Pressure 81 11/05/2019 12:45 PM CDT Pulse 36.8 C (98.2 F) 11/05/2019 12:45 PM CDT Temperature 16 11/05/2019 12:45 PM CDT Respiratory Rate 99% 11/05/2019 12:45 PM CDT Oxygen Saturation - - Inhaled Oxygen Concentration 104.3 kg (230 lb) 11/05/2019 7:20 AM CDT Weight 157.5 cm (5' 2") 11/05/2019 7:20 AM CDT Height 42.07 11/05/2019 7:20 AM CDT Body Mass Index Plan of Treatment [...] URINE STAT 11/05/2019 8:00 AM CDT after 01/02/2019 Results * C-Reactive Protein (11/05/2019 11:47 AM CDT) CRP 4.90 (H) 0.00 - 0.50 mg/dL [facility] [place] Specimen Blood Narrative Performed At Converting Supervisor OCTAVIO - [place] [facility] Performing Organization Address City/State/Zipcode Ph one Number [facility] [address] [facility], [place] [address] MEDICAL CENTER * CBC with platelet count + automated diff (11/05/2019 9:46 AM CDT) WBC 6.7 3.5 - 10.5 K/L [facility] RBC 4.10 3.93 - 5.22 M/L [facility] [place] Hemoglobin 11.9 11.2 - 15.7 GM/DL [facility] [place] Hematocrit 35.7 34.1 - 44.9 % [facility] MCV 87.1 79.4 - 94.8 fL [facility] MCH 29.0 25.6 - 32.2 pg [facility] MCHC 33.3 32.2 - 35.5 GM/DL [facility] [place] RDW 13.3 11.7 - 14.4 % [facility] Platelets 267 150 - 450 K/CU MM [facility] [place] MPV 11.7 9.4 - 12.3 fL [facility] nRBC 0 0 - 0 /100 WBC [facility] % Neutros 64 % [facility] % Lymphs 26 % [facility] % Monos 10 % [facility] % Eos 0 % [facility] % Baso 0 % [facility] # Neutros 4.29 1.56 - 6.13 K/L [facility] [place] # Lymphs 1.72 1.18 - 3.74 K/L [facility] [place] # Monos 0.66 (H) 0.24 - 0.36 K/L [facility] [place] # Eos 0.02 (L) 0.04 - 0.36 K/L [facility] [place] # Baso 0.02 0.01 - 0.08 K/L [facility] [place] Immature 0 0 - 1 % [facility] Granulocytes-Re [facility] Specimen Blood Performing Organization Address City/State/Zipcode Ph one Number [facility] [address] [place] [address] [facility] * Comprehensive metabolic panel (11/05/2019 9:46 AM CDT) Protein, Total 8.0Comment: Specimen 6.0 - 8.3 gm/dL [facility] moderately hemolyzed [facility] Albumin 4.0Comment: Specimen 3.5 - 5.0 g/dL [facility] moderately hemolyzed [facility] Alkaline 79 40 - 150 U/L [facility] Phosphatase [facility] Total Bilirubin 0.5Comment: Specimen 0.2 - 1.2 mg/dL [facility] Sodium 137 136 - 145 meq/L [facility] Potassium 5.1Comment: Specimen 3.5 - 5.1 meq/L [facility] Chloride 106 98 - 107 meq/L [facility] CO2 23 22 - 29 meq/L [facility] BUN 5 (L) 7 - 21 mg/dL [facility] Creatinine 0.67Comment: Specimen 0.57 - 1.25 mg/dL [facility] Glucose 99 70 - 105 mg/dL [facility] Calcium 9.1 8.4 - 10.2 mg/dL [facility] AST 19Comment: Specimen moderately 5 - 34 U/L [facility] ALT 11Comment: Specimen moderately 6 - 55 U/L [facility] EGFR 124Comment: ESTIMATED GFR IS mL/min/1.73 sq m [facility] NOT ACCURATE CREATININE [facility] CLEARANCE IN PREDICTING MEDICAL CENTER GLOMERULAR FILTRATION RATE. ESTIMATED GFR IS NOT APPLICABLE FOR DIALYSIS PATIENTS. Specimen Blood Narrative Performed At Converting Supervisor OCTAVIO [place] [facility] Performing Organization Address City/State/Zipcode Ph one Number [facility] [address] [place] [address] MEDICAL CENTER * XR spine lumbar complete [...] Report Verified Date/Time: 11/05/2019 09:34:35 Reading Location: Funding [employer] Reading Room Procedure Note Interface, External Ris In - 11/05/2019 9:36 AM CDT FINAL REPORT RAD, SPINE, LUMBAR, COMPLETE (MIN 4 VIEWS), RAD, SPINE, THORACIC, 2 VIEWS INDICATION: BACK PAIN COMPARISON: None TECHNIQUE: AP and lateral radiographs of the thoracic and lumbar spine FINDINGS/IMPRESSION: No acute fracture or malalignment Signed: Lizzeth Patrick MD Report Verified Date/Time: 11/05/2019 09:34:35 Reading Location: [email or web address] [place] [facility] Reading Room Performing Organization Address City/[facility]/Zipcode Ph one Number [facility] * XR [...] Report Verified Date/Time: 11/05/2019 09:34:35 Reading Location: Funding [employer] Reading Room Procedure Note Interface, External Ris In - 11/05/2019 9:36 AM CDT FINAL REPORT RAD, SPINE, LUMBAR, COMPLETE (MIN 4 VIEWS), RAD, SPINE, THORACIC, 2 VIEWS INDICATION: BACK PAIN COMPARISON: None TECHNIQUE: AP and lateral radiographs of the thoracic and lumbar spine FINDINGS/IMPRESSION: No acute fracture or malalignment Signed: Lizzeth Patrick MD Report Verified Date/Time: 11/05/2019 09:34:35 Reading Location: [facility] Rad[facility] Reading Room Performing Organization Address [facility] one Number [facility] * XR hip [...] Report Verified Date/Time: 11/05/2019 09:33:32 [facility] Procedure Note Interface, External Ris In - 11/05/2019 9:35 AM CDT FINAL REPORT RAD, HIP, 2-3 VIEWS, LEFT, TO INCL PELVIS WHEN PERFORMED INDICATION: BACK PAIN COMPARISON: None TECHNIQUE: AP and lateral radiographs of the hip FINDINGS/IMPRESSION: No acute fracture or malalignment Signed: Lizzeth Patrick MD Report Verified Date/Time: 11/05/2019 09:33:32 Reading Location: [facility] Radiology Reading Room Performing Organization Address [facility] Ph one Number [facility] * XR [...] Reading Location: [facility] Radiolo gy Reading Room Procedure Note Interface, [...] Reading Location: [facility] Radiology Reading Room Performing Organization Address City/State/Zipcode Ph one Number [facility] * Urinalysis w/Microscopic + Reflex to Culture (11/05/2019 8:00 AM CDT) Color, UA Colorless [facility] Clarity, UA Clear [facility] Specific 1.005 1.001 - 1.035 [facility] [place], [facility] pH, UA 7.0 5.0 - 8.0 [facility] Protein, UA Negative Negative [facility] Glucose, UA Negative Negative [facility] Ketones, UA Negative Negative [facility] Bilirubin, UA Negative Negative [facility] Blood, UA Negative Negative [facility] Nitrite, UA Negative Negative [facility] Leukocytes, UA Negative Negative [facility] Urobilinogen, 0.2 0.2 - 1.0 mg/dL [facility] RBC, UA 0 /HPF [facility] WBC, UA 1 /HPF [facility] Squam Epithel, <1 /HPF [facility] Specimen Source [facility] Specimen Urine - Urine specimen collection, clean catch (procedure) Narrative Performed At Converting Supervisor ID - [auto] [facility] Converting Supervisor ID - tech [facility] Performing Organization Address City/State/[facility] Ph one Number [facility] [address] [place], [place] [address] [facility] * screen, urine (11/05/2019 8:00 AM CDT) Preg Test, Ur Negative [facility] Specimen Urine Performing Organization Address City/State/Zipcode Ph one Number [facility] [address] [place], [place] [address] [facility] after 01/02/2019 Insurance Type Payer Benefit Subscriber ID Effective Phone Address Plan / Dates Group [facility] [id number] [place] [address] MEDICAL Present RESOURCES [place] [address] (Home) [place] [address]
[2020-01-03] MEDS ORDERED: PREDNISONE 20 MG TAB PO ONE (05:45)
--- NOTE | 2020-01-03 05:46 | Emergency Department Note ---
History of Present Illnes History of Present Illness Chief Complaint: Extremity Trauma/Pain History of Present Illness This is a 29 year old female, with no significant past medical history until she fell 3 months ago, who presents with a 1-1/2 week history of right low back pain radiating to her right hip and right lower extremity. Patient was seen at [facility] ER sometime last week and was treated with "a shot of morphine and a Medrol Dosepak." Patient was seen by her PCP, Dr. Nirmal Loving, 3 days ago, and prescribed gabapentin and Vicoprofen. Patient states that she has been taking the medication since that time, without relief of her symptoms. The pain is keeping her awake, and the only thing that seemed to help was the "shot of morphine" that she got last week, at [facility], per her Mom. The pain radiates down the back of the right leg and she's had some tingling in her right foot. She denies any difficulty with bowel or bladder control. Patient denies any new injury. She did fall 3 months ago and has since had issues with her left knee, where she apparently suffered a torn meniscus, and was seen here on 11/28/19 for left hip pain. Patient states that she is followed by Dr. Castillo for her left knee pain. Historian: Patient, Family Member (Mom is here with patient. L any pharmacies and anterolateral noted that he would not using) Arrival Mode: Car Additional Treatment HARBOR PILOT: medications taken that were prescribed by PCP Member Service Specialist Required: No Onset (how long ago): week(s) (1.5) Location: right low back and RLE Quality: sharp, stabbing, aching Radiation: Reports extremity (RLE) Severity: severe Onset quality: sudden Duration (how long): week(s) (1.5) Timing of current episode: constant Progression: unchanged Chronicity: new Context: Reports trauma/injury (fall 3 months ago) Relieving factors: none Exacerbating factors: medication Associated symptoms: Denies fever/chills, Denies nausea/vomiting, Denies weakness Treatments prior to arrival: NSAID, other (gabapentin, vicoprofen) Risk factors: morbid obesity Past Medical/Family History Physician Review I have reviewed the patient's past medical and family history. Any updates have been documented here. Past Medical History Recent Fever: No Clinical Suspicion of Infectio: No New/Unexplained Change in Ment: No Past Medical History: None Other Medical History: HEART MURMER () Past Surgical History: None Other Surgery: wisdom tooth (right lower jaw) Social History Smoking Cessation: Never Smoker Alcohol Use: None Any Illegal Drug Use: No TB Exposure/Symptoms: No Physically hurt or threatened: No Family History Family history of heart diseas: No Other Last Tetanus: < 5 years; Any Pre-Existing Lines (PICC,: No Is patient up to date on immun: Yes Review of Systems Review of Systems Constitutional: Denies chills, Denies fever EENTM: Reports no symptoms Cardiovascular: Denies chest pain, Denies edema, Denies palpitations Respiratory: Denies cough, Denies dyspnea Gastrointestinal: Denies abdominal pain, Denies constipation, Denies diarrhea, Denies nausea, Denies vomiting Genitourinary: Denies dysuria, Denies frequency Musculoskeletal: Reports back pain, Reports muscle pain; Denies joint pain, Denies neck pain Integumentary: Denies change in color, Denies rash Neurological: Reports tingling (RLE); Denies headache, Denies weakness Psychological: Reports no symptoms Endocrine: Reports no symptoms Hematological/Lymphatic: Reports no symptoms Review of other systems: All other systems negative Physical Exam Related Data Allergies: Coded Allergies: amoxicillin (Verified Allergy, Intermediate, rash/hives/itching, 11/28/19) Vital signs reviewed: Yes Physical Exam CONSTITUTIONAL Constitutional: Present well-developed, Present well-nourished, Present morbidly obese; Absent distressed, Absent ill appearing HENT HENT: Present normocephalic, Present atraumatic, Present oropharynx clear/moist, Present nose normal; Absent nasal congestion HENT L/R: Present left ext ear normal, Present right ext ear normal EYES Eyes: Reports PERRL, Reports conjunctivae normal NECK Neck: Present ROM normal, Present supple; Absent cervical adenopathy PULMONARY Pulmonary: Present effort normal, Present breath sounds normal CARDIOVASCULAR Cardiovascular: Present regular rhythm, Present heart sounds normal, Present capillary refill normal, Present normal rate; Absent murmur GASTROINTESTINAL Abdominal: Present soft, Present nontender, Present bowel sounds normal GENITOURINARY Genitourinary: Present exam deferred SKIN Skin: Present warm, Present dry; Absent rash MUSCULOSKELETAL Musculoskeletal: Present ROM normal (pain with any movement; + SLR on right at 30 degrees; ), Present tenderness (ttp of right lower lumbar paraspinal muscles, right SI joint and overlying soft tissue, without crepitus; ); Absent edema NEUROLOGICAL Neurological: Present alert, Present oriented x 3, Present no gross motor or sensory deficits; Absent cranial nerve deficit, Absent weakness PSYCHOLOGICAL Psychological: Present mood/affect normal, Present judgement normal Assessment & Plan Medical Decision Making MDM Explained to mom and patient, that her symptoms may represent a pinched nerve in her lumbar spine, which is best diagnosed by an MRI. Explained that we do not have MRI in the emergency room, that this will need to be scheduled as an outpat ient with Dr. Nirmal Loving. The gabapentin is an appropriate medication for the symptoms, but the dose to use to be titrated higher, for pain relief. Patient was instructed to increase the gabapentin to 2 tablets 3 times per day, to continue Vicoprofen, and to follow-up with Dr. Loving today, regarding her symptoms. Discussed that morphine will only offer brief, temporary relief, and i s not typically indicated for the treatment of back pain. - Apply ice to the area of pain on the right side of your back and hip for 20 minutes at a time, as needed. - For pain, you may increase the Gabapentin to 100 mg - 2 tabs together, every 8 hours, or 3x/day, for pain. - You may try the "Voltaren Gel" to area of pain, every 6 hours, as needed. - Follow-up with Dr. Loving, TODAY, for further evaluation of your back pain, which is "Sciatica or Lumbar Radiculopathy." Assessment & Plan Final Impression: (1) Low back pain (2) Sciatica of right side (3) Lumbar radiculopathy, acute Depart Disposition: HOME, SELF-jail Meds Active Scripts Prednisone (PREDNISONE) 20 Mg Tab, 50 MG PO DAILY for back pain, #7 TAB 0 Refills Prov:KECIA MARTINEZ MD 01/03/20 Cyclobenzaprine Hcl (CYCLOBENZAPRINE HCL) 10 Mg Tablet, 10 MG PO TID PRN for MUSCLE SPASMS, #30 TAB Prov:NEAL ESPINOZA MD 11/28/19 Tramadol Hcl (ULTRAM) 50 Mg Tablet, 50 MG PO Q6HR PRN for ALLERGY, #60 TAB Prov:NEAL ESPINOZA MD 11/28/19 Famotidine (FAMOTIDINE) 20 Mg Tab, 40 MG PO DAILY for acid reflux, #30 TAB 0 Refills Prov:KECIA MARTINEZ MD 10/30/19 Dicyclomine Hcl (DICYCLOMINE HCL) 20 Mg Tablet, 1 TAB PO QID PRN for abdominal pain or cramping, #20 TAB 0 Refills Prov:KECIA MARTINEZ MD 10/30/19 Ondansetron (ONDANSETRON ODT) 8 Mg Tab.rapdis, 4 MG PO Q6H PRN for nausea, #20 TAB 0 Refills Prov:KECIA MARTINEZ MD 10/30/19 KECIA MARTINEZ MD Jan 03, 2020 05:46
[2020-01-03] MEDS ORDERED: PREDNISONE20 MG PO (05:49)
[2020-01-03] MEDS ORDERED: PREDNISONE 20 MG TAB ONE (05:53)
== END 2020-01-03 05:56 | disposition home or self-care (01) ==
LOC: FSED 05:30
DX: M54.41 Lumbago with sciatica, right side (principal); M54.16 Radiculopathy, lumbar region
CPT/HCPCS: 99282; J7512

== ENCOUNTER → 2020-01-19 | Outpatient (CLI) | payer OTHER ==
[~2020-01-19] MED LIST changes: +PREDNISONE20 MG PO
== END ==
LOC: MRI 10:31
PROVIDERS: ATTEND Specialist
DX: M54.16 Radiculopathy, lumbar region (principal)
CPT/HCPCS: 72148

== ENCOUNTER 2020-01-29 16:13 | Emergency (ER) | payer OTHER ==
[~2020-01-29] VITALS: Ht 157.5 cm; Wt 109.3 kg
== END 2020-01-29 19:45 | disposition other institution (70) ==
LOC: ER 16:55
DX: D49.7 Neoplasm of unspecified behavior of endocrine glands and other parts of nervous system (principal); M54.41 Lumbago with sciatica, right side; G89.29 Other chronic pain
CPT/HCPCS: 99282

== ENCOUNTER 2020-11-29 21:16 | Emergency (ER) | payer OTHER ==
[~2020-11-29] VITALS: Ht 157.5 cm; Wt 113.4 kg
== END 2020-11-29 22:06 | disposition home or self-care (01) ==
LOC: ER 21:35
DX: G58.8 Other specified mononeuropathies (principal); M54.9 Dorsalgia, unspecified; G89.29 Other chronic pain
CPT/HCPCS: 99282

== ENCOUNTER 2021-02-21 21:34 | Emergency (ER) | payer SELFPAY ==
[~2021-02-21] VITALS: Ht 172.7 cm; Wt 158.8 kg
[2021-02-21] MEDS ORDERED: TETRACAINE HCL 0.5% OPTH SOLN 4 ML BTL OP ONE (22:00)
[2021-02-21] MEDS ORDERED: FLUORESCEIN SOD(OPTH) 1 MG STRP OP ONE (22:00)
[2021-02-21] MEDS ORDERED: TOBRADEX EYE O3.5 GM OD (22:45)
[2021-02-21] MEDS ORDERED: TESSALON PERLE100 MG PO (22:46)
== END 2021-02-21 22:52 | disposition home or self-care (01) ==
LOC: FSED 21:38
DX: U07.1 COVID-19 (principal); H10.31 Unspecified acute conjunctivitis, right eye; R05.9 Cough, unspecified; M54.9 Dorsalgia, unspecified; G89.29 Other chronic pain
CPT/HCPCS: 99282

== ENCOUNTER 2022-08-22 07:41 | Emergency (ER) | payer OTHER, SELFPAY ==
[~2022-08-22] VITALS: Ht 157.5 cm; Wt 112.0 kg
[~2022-08-22 07:41] MED LIST changes: +TESSALON PERLE100 MG PO; +TOBRADEX EYE O3.5 GM OD
[2022-08-22] MEDS ORDERED: KETOROLAC TROMETHAMINE 30 MG/ML VIAL ONE (07:47)
[2022-08-22] MEDS ORDERED: ONDANSETRON HCL INJ 2MG/ML 2ML 2 MG/ML VIAL ONE (07:47)
[2022-08-22] MEDS ORDERED: FAMOTIDINE 20 MG/2 ML VIAL IV ONE ×2 (07:48→08:15)
[2022-08-22] MEDS ORDERED: SODIUM CHLORIDE 0.9% 1000ML 1,000 ML ONE (07:48)
[2022-08-22] MEDS ORDERED: SODIUM CHLORIDE 0.9% 1000ML 1,000 ML IV STA (08:08)
[2022-08-22] MEDS ORDERED: MAALOX MAXIMUM355 ML PO (08:12)
[2022-08-22] MEDS ORDERED: ONDANSETRON ODT4 MG PO (08:12)
[2022-08-22] MEDS ORDERED: FAMOTIDINE20 MG PO (08:12)
[2022-08-22] MEDS ORDERED: KETOROLAC TROMETHAMINE 30 MG/ML VIAL IV ONE (08:15)
[2022-08-22] MEDS ORDERED: ONDANSETRON HCL INJ 2MG/ML 2ML 2 MG/ML VIAL IV ONE (08:15)
[2022-08-22 09:19] VITALS: PULSE 83; RESP 18; O2SAT 100
== END 2022-08-22 09:22 | disposition home or self-care (01) ==
LOC: FSED 07:46
DX: R11.2 Nausea with vomiting, unspecified (principal); K52.9 Noninfective gastroenteritis and colitis, unspecified; E86.0 Dehydration; R00.0 Tachycardia, unspecified; K29.70 Gastritis, unspecified, without bleeding; M54.9 Dorsalgia, unspecified; G89.29 Other chronic pain; R01.1 Cardiac murmur, unspecified
CPT/HCPCS: 74176; 80048; 80076; 81003; 81025; 85025; 96374; 96375; 96376; 99284; J1885; J2405; J7030